=== PATIENT | female | born 1930 | race Caucasian/White ===

== ENCOUNTER 2016-11-09 20:58 | Inpatient (IN) | payer OTHER, BC ==
[~2016-11-09] VITALS: Ht 165.1 cm; Wt 56.1 kg
[~2016-11-09 20:58] MED LIST: ADVAIR 250/501 DISK IH; ADVAIR HFA120 INHALA IH; ASPIR-LOW81 MG PO; Advair HFA 115/21 IH; Aspirin E.C. PO; BENAZEPRIL HCL10 MG PO; CEFTIN250 MG PO; CEFTIN500 MG PO; Colace PO; Combivent IH; DIGOXIN125 MCG PO; DIGOXIN250 MCG PO; DOXYCYCLINE HY100 MG PO; DUONEB 2.5-0.5 M3 ML AEROSOL; DUONEB 2.5-0.5 M3 ML IH; Dulcolax PEG; Heparin Sodium SC; LASIX40 MG PO; LEVAQUIN500 MG PO; LEVOFLOXACIN500 MG PO; LIPITOR40 MG PO; LO-DOSE ASPIRIN81 M2 PO; LOPRESSOR25 MG PO; Lasix PEG; Lipitor PO; Lopressor PO; MEGACE40 MG PO; METOPROLOL TART25 MG PO; MUCINEX DM ER1 EACH PO; MUCUS RELIEF PEG; MUCUS RELIEF400 MG PO; PANTOPRAZOLE SO40 MG PO; PREDNISONE10 MG PO; PREDNISONE5 MG PO; PROTONIX40 MG PO; PROVENTIL,2.5 MG/0.5 IH; Protonix PO; SODIUM CHLORIDE1 G1 PO; SPIRIVA1 INHALATI IH; SYNTHROID100 MCG PO; TYLENOL EXTRA500 MG PO; TYLENOL REGULA325 MG PO; predniSONE PO
[2016-11-09 21:38] LABS: HEMATOCRIT 40.7 % (36.0-46.0); MCH 31.2 PG (29.0-34.0); MCHC 32.7 G/DL (30.0-36.0); MCV 95.5 FL (83-99); MEAN PLAT.VOLUME 8.7 uM^3 (9.5-12.4); PLATELET COUNT 431 K/uL (156-360); RBC DIS.WIDTH-CV 14.9 % (11.8-14.6); RBC DIS.WIDTH-SD 49.8 % (39-53); RED BLOOD COUNT 4.26 M/uL (3.80-5.20); WHITE BLOOD COUNT 15.9 K/uL (4.1-10.2)
[2016-11-09 21:48] LABS: CHLORIDE 90 mEq/L (99-109)
[2016-11-09 21:49] LABS: SODIUM 133 mEq/L (136-147)
[2016-11-09 21:50] LABS: GLUCOSE 114 mg/dL (70-99)
[2016-11-09 21:52] LABS: ANION GAP 14 MEQ/L (2-14); POTASSIUM 3.5 mEq/L (3.7-5.4)
[2016-11-09 21:54] LABS: GFR ESTIMATE (CALCULATED) > 59 mL/min/
[2016-11-09 21:55] LABS: UREA NITROGEN (BUN) 8 mg/dL (9-23)
[2016-11-09 22:01] LABS: TROP-I INTERPRETATION NEGATIVE; TROPONIN-I 0.07 ng/mL (0.0-0.30)
[2016-11-10 03:00] LABS: ADD MIUA? YES; BILIRUBIN NEGATIVE; BLOOD NEGATIVE; COLOR YELLOW ((YELLOW)); GLUCOSE (STRIP) NEGATIVE; KETONES NEGATIVE; LEUKOCYTES MODERATE; NITRITE POSITIVE; PH, URINE 6.5 (5-8); PROTEIN (STRIP) NEGATIVE; SPECIFIC GRAVITY 1.009 (1.000-1.030)
[2016-11-10 03:19] LABS: BACTERIA RARE; CASTS PRESENT /LPF; CRYSTALS NONE SEEN; EPITHELIAL CELLS RARE; HYALINE CASTS 0-5 /LPF; MUCUS NONE SEEN; RED BLOOD CELLS NONE SEEN /HPF (0-5); UCUL ADDED? NO; WHITE BLOOD CELLS 30-40 /HPF (0-5)
[2016-11-10 06:00] VITALS: BP 156/69
[2016-11-10 06:07] VITALS: BP 156/69
[2016-11-10 07:14] VITALS: BP 136/63
[2016-11-10 12:13] VITALS: BP 139/63
[2016-11-10 16:43] VITALS: BP 135/59
[2016-11-10 23:45] VITALS: BP 131/62
[2016-11-11 04:23] VITALS: BP 125/58
[2016-11-11 06:25] LABS: EOSINOPHIL (%) 0.5 % (0-5); EOSINOPHIL COUNT 0.1 K/uL (0-0.3); HEMATOCRIT 37.2 % (36.0-46.0); IMMATURE GRANULOCYTE (%) 0.3 % (0.0-0.7); MCH 31.2 PG (29.0-34.0); MCHC 32.5 G/DL (30.0-36.0); MCV 95.9 FL (83-99); MONOCYTE (%) 8.6 % (3-12); MONOCYTE COUNT 1.3 K/uL (0-0.8); NEUTROPHIL (%) 77.5 % (45-76); NEUTROPHIL COUNT 11.8 K/uL (1.8-6.4); PLATELET COUNT 334 K/uL (156-360); RBC DIS.WIDTH-CV 15.3 % (11.8-14.6); RBC DIS.WIDTH-SD 53.7 % (39-53); RED BLOOD COUNT 3.88 M/uL (3.80-5.20); WHITE BLOOD COUNT 15.2 K/uL (4.1-10.2)
[2016-11-11 07:01] LABS: DIGOXIN 1.3 ng/mL (0.8-2.0)
[2016-11-11 07:46] LABS: ALKALINE PHOSPHATASE 91 IU/L (3-129); ANION GAP 14 MEQ/L (2-14); CHLORIDE 93 MEQ/L (99-109); GFR ESTIMATE (CALCULATED) > 59 mL/min/; GLUCOSE 89 mg/dL (70-99); POTASSIUM 3.8 MEQ/L (3.7-5.4); SAMPLE HEMOLYSIS CHECK 1; SAMPLE ICTERIC CHECK 0; SAMPLE LIPEMIA CHECK 0; SODIUM 135 MEQ/L (136-147); UREA NITROGEN (BUN) 11 mg/dL (9-23)
[2016-11-11 07:56] LABS: TOTAL BILIRUBIN 0.8 MG/DL (0.0-1.0)
[2016-11-11 08:07] VITALS: BP 150/65
[2016-11-11 12:19] VITALS: BP 128/60
[2016-11-11 16:13] VITALS: BP 92/51
[2016-11-11 19:44] VITALS: BP 119/53
[2016-11-11 23:32] VITALS: BP 135/63
[2016-11-12 00:32] VITALS: BP 140/71
[2016-11-12 04:05] VITALS: BP 146/67
[2016-11-12 07:59] VITALS: BP 123/59
[2016-11-12 16:00] VITALS: BP 96/52
[2016-11-13 00:10] VITALS: BP 161/74
[2016-11-13] MEDS ORDERED: DIGOXIN250 MCG PO (11:28)
[2016-11-13] MEDS ORDERED: ASPIR-LOW81 MG PO (11:30)
[2016-11-13] MEDS ORDERED: PROTONIX40 MG PO (11:31)
[2016-11-13] MEDS ORDERED: LIPITOR40 MG PO (11:33)
[2016-11-13] MEDS ORDERED: SYNTHROID100 MCG PO (11:36)
[2016-11-13] MEDS ORDERED: PREDNISONE5 MG PO (11:36)
[2016-11-13] MEDS ORDERED: DUONEB 2.5-0.5 M3 ML AEROSOL (11:38)
[2016-11-13] MEDS ORDERED: SODIUM CHLORIDE1 G1 PO (11:43)
[2016-11-13] MEDS ORDERED: LOTENSIN10 MG PO (11:44)
[2016-11-13 15:41] VITALS: BP 158/71
[2016-11-13 20:51] LABS: ADD MIUA? YES; BILIRUBIN NEGATIVE; BLOOD NEGATIVE; COLOR DK YELLOW ((YELLOW)); GLUCOSE (STRIP) NEGATIVE; KETONES NEGATIVE; LEUKOCYTES SMALL; NITRITE NEGATIVE; PROTEIN (STRIP) TRACE
[2016-11-13 21:36] LABS: RED BLOOD CELLS 0-5 /HPF (0-5); WHITE BLOOD CELLS 0-5 /HPF (0-5)
[2016-11-13 21:37] LABS: BACTERIA RARE; CASTS NONE SEEN /LPF; CRYSTALS NONE SEEN; EPITHELIAL CELLS 3+; MUCUS 1+; UCUL ADDED? NO
[2016-11-14 00:01] VITALS: BP 165/70
[2016-11-14 08:12] LABS: EOSINOPHIL (%) 1.7 % (0-5); EOSINOPHIL COUNT 0.2 K/uL (0-0.3); HEMATOCRIT 29.6 % (36.0-46.0); IMMATURE GRANULOCYTE (%) 0.3 % (0.0-0.7); LYMPHOCYTE COUNT 1.9 K/uL (1.0-2.8); MCH 31.7 PG (29.0-34.0); MCHC 33.1 G/DL (30.0-36.0); MCV 95.8 FL (83-99); MEAN PLAT.VOLUME 9.2 uM^3 (9.5-12.4); MONOCYTE (%) 10.5 % (3-12); NEUTROPHIL (%) 67.3 % (45-76); NEUTROPHIL COUNT 6.3 K/uL (1.8-6.4); PLATELET COUNT 373 K/uL (156-360); RBC DIS.WIDTH-CV 15.4 % (11.8-14.6); RBC DIS.WIDTH-SD 53.8 % (39-53)
[2016-11-14 08:14] LABS: RED BLOOD COUNT 3.09 M/uL (3.80-5.20); WHITE BLOOD COUNT 9.3 K/uL (4.1-10.2)
[2016-11-14 08:18] LABS: ALKALINE PHOSPHATASE 73 IU/L (3-129); ANION GAP 11 MEQ/L (2-14); CHLORIDE 99 MEQ/L (99-109); GFR ESTIMATE (CALCULATED) > 59 mL/min/; GLUCOSE 79 mg/dL (70-99); POTASSIUM 3.5 MEQ/L (3.7-5.4); SAMPLE HEMOLYSIS CHECK 0; SAMPLE ICTERIC CHECK 0; SAMPLE LIPEMIA CHECK 0; SODIUM 137 MEQ/L (136-147); UREA NITROGEN (BUN) 11 mg/dL (9-23)
[2016-11-14 08:24] LABS: TOTAL BILIRUBIN 0.5 MG/DL (0.0-1.0)
[2016-11-14] MEDS ORDERED: AMPICILLIN TRI500 MG PO (09:52)
== END 2016-11-14 11:48 | disposition home or self-care (01) | DRG 871 ==
LOC: EME 20:58 → EDOF 11-10 04:43 → 5EAST 11-10 04:43 → 3EAST 11-10 04:43 → 5EAST 11-12 00:15
PROVIDERS: Emergency Medicine; Family Medicine
DX: A41.9 Sepsis, unspecified organism (principal); G93.40 Encephalopathy, unspecified; N39.0 Urinary tract infection, site not specified; E87.1 Hypo-osmolality and hyponatremia; I48.2 Chronic atrial fibrillation; B95.2 Enterococcus as the cause of diseases classified elsewhere; J44.9 Chronic obstructive pulmonary disease, unspecified; E78.5 Hyperlipidemia, unspecified; I10 Essential (primary) hypertension; I25.10 Atherosclerotic heart disease of native coronary artery without angina pectoris; E03.9 Hypothyroidism, unspecified; Z99.81 Dependence on supplemental oxygen
CPT/HCPCS: 71010; 71020; 80048; 80053; 80162; 81003; 84443; 84484; 85025; 85027; 87077; 87086; 87186; 93005; 94760; 94799; 99202; 99281; 99285; J0295; J0696; J7030; J7050; J7512

== ENCOUNTER 2017-01-06 23:59 | Inpatient (IN) | payer OTHER, BC ==
[~2017-01-06] VITALS: Ht 165.1 cm; Wt 59.0 kg
[~2017-01-06 23:59] MED LIST changes: +AMPICILLIN TRI500 MG PO; +LOTENSIN10 MG PO
[2017-01-07 01:09] LABS: EOSINOPHIL COUNT 0.1 K/uL (0-0.3); HEMATOCRIT 39.3 % (36.0-46.0); IMMATURE GRANULOCYTE (%) 0.3 % (0.0-0.7); IMMATURE GRANULOCYTE COUNT 0.3 K/uL; MCH 30.8 PG (29.0-34.0); MCHC 32.3 G/DL (30.0-36.0); MCV 95.2 FL (83-99); MEAN PLAT.VOLUME 9.1 uM^3 (9.5-12.4); MONOCYTE (%) 9.8 % (3-12); MONOCYTE COUNT 1.1 K/uL (0-0.8); NEUTROPHIL (%) 71.4 % (45-76); NEUTROPHIL COUNT 8.2 K/uL (1.8-6.4); PLATELET COUNT 372 K/uL (156-360); RBC DIS.WIDTH-CV 15.7 % (11.8-14.6); RBC DIS.WIDTH-SD 52.4 % (39-53); RED BLOOD COUNT 4.13 M/uL (3.80-5.20); WHITE BLOOD COUNT 11.5 K/uL (4.1-10.2)
[2017-01-07 01:42] LABS: PROTHROMBIN TIME 10.4 (9.2-11.2); PTT 26.6 (25-32)
[2017-01-07 01:48] LABS: TROP-I INTERPRETATION NEGATIVE; TROPONIN-I 0.03 ng/mL (0.0-0.30)
[2017-01-07 02:00] LABS: CHLORIDE 93 mEq/L (99-109); POTASSIUM 4.8 mEq/L (3.7-5.4); SODIUM 131 mEq/L (136-147)
[2017-01-07 02:01] LABS: GLUCOSE 99 mg/dL (70-99)
[2017-01-07 02:03] LABS: ANION GAP 11 MEQ/L (2-14)
[2017-01-07 02:05] LABS: GFR ESTIMATE (CALCULATED) > 59 mL/min/
[2017-01-07 02:06] LABS: UREA NITROGEN (BUN) 9 mg/dL (9-23)
[2017-01-07 05:08] LABS: HDL CHOLESTEROL 55 MG/DL (Desirable>=50); LDL CHOLESTEROL 68 mg/dL (Desirable<100); NON-HDL CHOLESTEROL 95 mg/dL (Desirable<160); TOTAL CHOLESTEROL 150 mg/dL (Desirable<200); TRIGLYCERIDES 136 MG/DL (Normal: <150)
[2017-01-07 05:20] LABS: ADD MIUA? YES; BILIRUBIN NEGATIVE; BLOOD SMALL; COLOR YELLOW ((YELLOW)); GLUCOSE (STRIP) NEGATIVE; KETONES NEGATIVE; LEUKOCYTES MODERATE; NITRITE NEGATIVE; PROTEIN (STRIP) NEGATIVE; SPECIFIC GRAVITY 1.006 (1.000-1.030); UROBILINOGEN 0.2 MG/DL (0.2-1.0)
[2017-01-07 05:42] LABS: BACTERIA 2+ /HPF; EPITHELIAL CELLS 1+ /HPF; MUCUS NONE SEEN /LPF; RED BLOOD CELLS 0-5 /HPF (0-5); UCUL ADDED? YES; WHITE BLOOD CELLS 20-30 /HPF (0-5)
[2017-01-07] MEDS ORDERED: METOPROLOL TART25 MG PO (07:18)
[2017-01-07] MEDS ORDERED: FUROSEMIDE40 MG PO (07:18)
[2017-01-07 08:20] VITALS: BP 154/67
[2017-01-07 12:28] VITALS: BP 150/68
[2017-01-07 16:15] VITALS: BP 146/65
[2017-01-07 19:54] VITALS: BP 144/69
[2017-01-08 00:21] VITALS: BP 141/63
[2017-01-08 08:05] VITALS: BP 149/65
[2017-01-08 12:20] VITALS: BP 147/63
[2017-01-08 14:44] VITALS: BP 129/63
[2017-01-08 19:34] VITALS: BP 117/67
[2017-01-08 23:21] VITALS: BP 136/66
[2017-01-09 04:04] VITALS: BP 155/67
[2017-01-09 07:57] VITALS: BP 148/62
[2017-01-09 12:47] VITALS: BP 146/62
[2017-01-09 16:26] VITALS: BP 136/69
[2017-01-09 19:58] VITALS: BP 123/59
[2017-01-10] VITALS: BP 152/68
[2017-01-10 04:00] VITALS: BP 131/66
[2017-01-10 08:08] VITALS: BP 156/61
[2017-01-10 12:12] VITALS: BP 142/64
[2017-01-10 16:09] VITALS: BP 148/69
[2017-01-11] VITALS: BP 174/72
[2017-01-11 01:48] VITALS: BP 138/62
[2017-01-11 03:43] VITALS: BP 147/66
[2017-01-11 07:00] VITALS: BP 146/71
[2017-01-11 15:54] VITALS: BP 117/58
[2017-01-12 00:13] VITALS: BP 147/62
[2017-01-12 08:30] VITALS: BP 152/62
[2017-01-12 11:47] VITALS: BP 129/60
[2017-01-12 14:54] VITALS: BP 103/57
[2017-01-12 21:33] VITALS: BP 130/62
[2017-01-12 23:59] VITALS: BP 167/67
[2017-01-13 08:04] VITALS: BP 138/63
[2017-01-13 11:35] VITALS: BP 119/75
[2017-01-13 15:32] VITALS: BP 152/69
[2017-01-13 23:48] VITALS: BP 148/65
[2017-01-14 07:48] VITALS: BP 132/60
[2017-01-14] MEDS ORDERED: MEGACE20 MG PO (15:37)
[2017-01-14 15:38] VITALS: BP 131/59
[2017-01-14] MEDS ORDERED: ADVAIR HFA120 INHALA IH (15:41)
[2017-01-14] MEDS ORDERED: CEFTIN250 MG PO (15:43)
== END 2017-01-14 17:30 | DRG 69 ==
LOC: EME 23:59 → EDOF 01-07 02:33 → 5SOUTH 01-07 03:24 → EDOF 01-07 03:24 → 5SOUTH 01-07 07:52
PROVIDERS: Personal Emergency Response Attendant
DX: G45.9 Transient cerebral ischemic attack, unspecified (principal); L03.115 Cellulitis of right lower limb; J44.1 Chronic obstructive pulmonary disease with (acute) exacerbation; E87.1 Hypo-osmolality and hyponatremia; N39.0 Urinary tract infection, site not specified; F05 Delirium due to known physiological condition; R47.01 Aphasia; R09.02 Hypoxemia; E03.9 Hypothyroidism, unspecified; B96.1 Klebsiella pneumoniae [K. pneumoniae] as the cause of diseases classified elsewhere; I10 Essential (primary) hypertension; K21.9 Gastro-esophageal reflux disease without esophagitis; I73.00 Raynaud's syndrome without gangrene; L40.9 Psoriasis, unspecified; I83.90 Asymptomatic varicose veins of unspecified lower extremity; Z79.52 Long term (current) use of systemic steroids; Z83.3 Family history of diabetes mellitus
CPT/HCPCS: 70450; 71020; 80048; 80061; 81003; 83036; 84484; 85025; 85610; 85730; 87077; 87086; 87186; 93005; 93880; 94640; 94640 76; 94667; 94668; 94799; 97530 GO; 97530 GP; 99281; 99285; J0690; J0696; J7050; J7512

== ENCOUNTER 2017-01-14 21:38 | Inpatient (IN) | payer OTHER, BC ==
[~2017-01-14] VITALS: Ht 165.1 cm; Wt 56.9 kg
[~2017-01-14 21:38] MED LIST changes: +FUROSEMIDE40 MG PO; +MEGACE20 MG PO
[2017-01-14 22:33] LABS: MCHC 33.4 G/DL (30.0-36.0); MCV 92.8 FL (83-99); MEAN PLAT.VOLUME 9.3 uM^3 (9.5-12.4); PLATELET COUNT 452 K/uL (156-360); RBC DIS.WIDTH-CV 15.7 % (11.8-14.6); RBC DIS.WIDTH-SD 53.1 % (39-53); RED BLOOD COUNT 3.77 M/uL (3.80-5.20)
[2017-01-14 22:42] LABS: CHLORIDE 99 mEq/L (99-109); POTASSIUM 4.1 mEq/L (3.7-5.4); SODIUM 130 mEq/L (136-147)
[2017-01-14 22:44] LABS: GLUCOSE 97 mg/dL (70-99)
[2017-01-14 22:45] LABS: ANION GAP 11 MEQ/L (2-14); INTER. NORMALIZED RATIO 1.1; PROTHROMBIN TIME 10.8 (9.2-11.2); PTT 28.2 (25-32)
[2017-01-14 22:47] LABS: GFR ESTIMATE (CALCULATED) > 59 mL/min/
[2017-01-14 22:48] LABS: UREA NITROGEN (BUN) 12 mg/dL (9-23)
[2017-01-15] VITALS (7 sets, daily range): BP systolic 103–142; BP diastolic 46–66
[2017-01-15 06:43] LABS: ADD MIUA? YES; BILIRUBIN NEGATIVE; BLOOD NEGATIVE; COLOR YELLOW ((YELLOW)); GLUCOSE (STRIP) NEGATIVE; KETONES NEGATIVE; LEUKOCYTES MODERATE; NITRITE NEGATIVE; PROTEIN (STRIP) 30; SPECIFIC GRAVITY 1.016 (1.000-1.030); UROBILINOGEN 0.2 MG/DL (0.2-1.0)
[2017-01-15 06:55] LABS: BACTERIA RARE /HPF; EPITHELIAL CELLS 1+ /HPF; HYALINE CASTS 15-20 /LPF; MUCUS TRACE /LPF; UCUL ADDED? NO; WHITE BLOOD CELLS 20-30 /HPF (0-5)
[2017-01-16] VITALS (13 sets, daily range): BP systolic 99–146; BP diastolic 46–76
[2017-01-16 06:33] LABS: HEMATOCRIT 26.4 % (36.0-46.0)
[2017-01-17 00:06] VITALS: BP 114/55
[2017-01-17 05:06] VITALS: BP 122/75
[2017-01-17 06:05] LABS: HEMATOCRIT 31.4 % (36.0-46.0); MCV 91.5 FL (83-99)
[2017-01-17 12:26] VITALS: BP 113/62
[2017-01-17 15:53] VITALS: BP 115/63
[2017-01-17 20:18] VITALS: BP 152/68
[2017-01-18 00:21] VITALS: BP 128/66
[2017-01-18 07:26] VITALS: BP 148/67
[2017-01-18 12:35] LABS: MCH 29.4 PG (29.0-34.0); MCHC 31.9 G/DL (30.0-36.0); MEAN PLAT.VOLUME 9.5 uM^3 (9.5-12.4); PLATELET COUNT 435 K/uL (156-360); RBC DIS.WIDTH-CV 16.3 % (11.8-14.6); RBC DIS.WIDTH-SD 55.4 % (39-53); RED BLOOD COUNT 4.02 M/uL (3.80-5.20)
[2017-01-18 13:07] LABS: ANION GAP 12 MEQ/L (2-14); CHLORIDE 102 MEQ/L (99-109); GFR ESTIMATE (CALCULATED) > 59 mL/min/; GLUCOSE 86 mg/dL (70-99); POTASSIUM 4.1 MEQ/L (3.7-5.4); SAMPLE HEMOLYSIS CHECK 0; SAMPLE ICTERIC CHECK 0; SAMPLE LIPEMIA CHECK 0; UREA NITROGEN (BUN) 14 mg/dL (9-23)
[2017-01-18 13:11] LABS: SODIUM 138 MEQ/L (136-147)
[2017-01-18] MEDS ORDERED: CALCIUM 600 +1 EAC1 PO (13:52)
[2017-01-18] MEDS ORDERED: OSTEO-PORETICA1 EACH PO (13:58)
[2017-01-18 15:07] VITALS: BP 112/62
== END 2017-01-18 16:01 | DRG 481 ==
LOC: EME → EDBD 21:38 → 3EAST 01-15 02:38 → EDOF 01-15 02:38 → 3EAST 01-15 05:12
PROVIDERS: Emergency Medicine; Family Medicine; Orthopaedic Surgery
PROC: 0QS604Z Reposition Right Upper Femur with Internal Fixation Device, Open Approach (ICD-10-PCS; principal; 2017-01-16)
DX: S72.141A Displaced intertrochanteric fracture of right femur, initial encounter for closed fracture (principal); E87.1 Hypo-osmolality and hyponatremia; N39.0 Urinary tract infection, site not specified; J44.9 Chronic obstructive pulmonary disease, unspecified; I25.810 Atherosclerosis of coronary artery bypass graft(s) without angina pectoris; D62 Acute posthemorrhagic anemia; W19.XXXA Unspecified fall, initial encounter; R09.02 Hypoxemia; F31.9 Bipolar disorder, unspecified; E78.5 Hyperlipidemia, unspecified; I10 Essential (primary) hypertension; E03.9 Hypothyroidism, unspecified; Z86.73 Personal history of transient ischemic attack (TIA), and cerebral infarction without residual deficits; Z87.891 Personal history of nicotine dependence; Z88.6 Allergy status to analgesic agent; Z88.8 Allergy status to other drugs, medicaments and biological substances; Z79.82 Long term (current) use of aspirin; Z95.1 Presence of aortocoronary bypass graft; Y92.121 Bathroom in nursing home as the place of occurrence of the external cause; Y99.9 Unspecified external cause status
CPT/HCPCS: 71010; 73501; 73502; 73552; 76000; 80048; 81003; 85014; 85018; 85027; 85610; 85730; 86850; 86900; 86901; 86920; 93005; 93306; 94640; 94640 76; 94799; 99202; C1713; J0690; J0696; J1170; J1650; J1940; J2370; J2405; J3010; J7030; J7050; J7120; J7512; P9016; S0020

== ENCOUNTER 2017-04-27 16:44 | Inpatient (IN) | payer OTHER, BC ==
[~2017-04-27] VITALS: Ht 165.1 cm; Wt 52.8 kg
[~2017-04-27 16:44] MED LIST changes: +CALCIUM 600 +1 EAC1 PO; +OSTEO-PORETICA1 EACH PO
[2017-04-27 17:44] LABS: HEMATOCRIT 41.8 % (36.0-46.0); MCH 30.8 PG (29.0-34.0); MCHC 32.3 G/DL (30.0-36.0); MCV 95.4 FL (83-99); MEAN PLAT.VOLUME 8.8 uM^3 (9.5-12.4); PLATELET COUNT 356 K/uL (156-360); RBC DIS.WIDTH-CV 15.6 % (11.8-14.6); RBC DIS.WIDTH-SD 55.1 % (39-53); RED BLOOD COUNT 4.38 M/uL (3.80-5.20); WHITE BLOOD COUNT 12.9 K/uL (4.1-10.2)
[2017-04-27 17:54] LABS: CHLORIDE 91 mEq/L (99-109); SODIUM 132 mEq/L (136-147)
[2017-04-27 17:56] LABS: GLUCOSE 109 mg/dL (70-99)
[2017-04-27 17:58] LABS: ANION GAP 10 MEQ/L (2-14)
[2017-04-27 18:00] LABS: GFR ESTIMATE (CALCULATED) > 59 mL/min/
[2017-04-27 18:01] LABS: UREA NITROGEN (BUN) 8 mg/dL (9-23)
[2017-04-27 21:03] LABS: TROP-I INTERPRETATION NEGATIVE; TROPONIN-I < 0.01 ng/mL (0.0-0.30)
[2017-04-27 21:06] LABS: ADD MIUA? YES; BILIRUBIN NEGATIVE; BLOOD NEGATIVE; COLOR YELLOW ((YELLOW)); GLUCOSE (STRIP) NEGATIVE; KETONES NEGATIVE; LEUKOCYTES SMALL; NITRITE NEGATIVE; PROTEIN (STRIP) NEGATIVE; SPECIFIC GRAVITY 1.008 (1.000-1.030); UROBILINOGEN 0.2 MG/DL (0.2-1.0)
[2017-04-27 21:14] LABS: BACTERIA 3+ /HPF; EPITHELIAL CELLS RARE /HPF; GRANULAR CASTS 0-5 /LPF; MUCUS TRACE /LPF; RED BLOOD CELLS 0-5 /HPF (0-5); UCUL ADDED? YES; WHITE BLOOD CELLS 20-30 /HPF (0-5); WHITE BLOOD CELLS CLUMP RARE /HPF (0-5)
[2017-04-27] MEDS ORDERED: CEFTIN500 MG PO (23:10)
[2017-04-27] MEDS ORDERED: MUCINEX DM ER1 EACH PO (23:13)
[2017-04-28] VITALS (8 sets, daily range): BP systolic 123–159; BP diastolic 56–67
[2017-04-28 06:24] LABS: HEMATOCRIT 34.7 % (36.0-46.0); MCH 30.8 PG (29.0-34.0); MCHC 32.6 G/DL (30.0-36.0); MCV 94.6 FL (83-99); RBC DIS.WIDTH-CV 15.9 % (11.8-14.6); RBC DIS.WIDTH-SD 55.4 % (39-53); RED BLOOD COUNT 3.67 M/uL (3.80-5.20); WHITE BLOOD COUNT 11.7 K/uL (4.1-10.2)
[2017-04-28 06:55] LABS: ALKALINE PHOSPHATASE 66 IU/L (3-129); ANION GAP 6 MEQ/L (2-14); CHLORIDE 95 MEQ/L (99-109); GFR ESTIMATE (CALCULATED) > 59 mL/min/; GLUCOSE 83 mg/dL (70-99); POTASSIUM 3.8 MEQ/L (3.7-5.4); SAMPLE HEMOLYSIS CHECK 0; SAMPLE ICTERIC CHECK 0; SAMPLE LIPEMIA CHECK 0; SODIUM 131 MEQ/L (136-147); TOTAL BILIRUBIN 0.5 MG/DL (0.0-1.0); UREA NITROGEN (BUN) 9 mg/dL (9-23)
[2017-04-28 07:18] LABS: PLAT.SUFFICIENCY ADEQUATE; PLATELET CLUMPS PRESENT - PLATELET COUNT APPEARS ADQ.; PLATELET COUNT UNABLE TO REPORT K/uL (156-360)
[2017-04-29] VITALS (7 sets, daily range): BP systolic 90–149; BP diastolic 47–67
[2017-04-30 04:47] VITALS: BP 138/65
[2017-04-30 05:44] LABS: EOSINOPHIL (%) 0.3 % (0-5); HEMATOCRIT 33.9 % (36.0-46.0); IMMATURE GRANULOCYTE (%) 0.4 % (0.0-0.7); INSTRUMENT ABS NEUTROPHIL CT 6.9 K/uL; LYMPHOCYTE COUNT 1.5 K/uL (1.0-2.8); MCV 93.9 FL (83-99); MEAN PLAT.VOLUME 9.1 uM^3 (9.5-12.4); MONOCYTE (%) 11.8 % (3-12); MONOCYTE COUNT 1.1 K/uL (0-0.8); NEUTROPHIL (%) 71.5 % (45-76); NEUTROPHIL COUNT 6.9 K/uL (1.8-6.4); PLATELET COUNT 290 K/uL (156-360); RBC DIS.WIDTH-CV 15.4 % (11.8-14.6); RBC DIS.WIDTH-SD 53.5 % (39-53); RED BLOOD COUNT 3.61 M/uL (3.80-5.20); WHITE BLOOD COUNT 9.6 K/uL (4.1-10.2)
[2017-04-30 06:12] LABS: ALKALINE PHOSPHATASE 57 IU/L (3-129); ANION GAP 6 MEQ/L (2-14); CHLORIDE 93 MEQ/L (99-109); GFR ESTIMATE (CALCULATED) > 59 mL/min/; POTASSIUM 3.5 MEQ/L (3.7-5.4); SAMPLE HEMOLYSIS CHECK 0; SAMPLE ICTERIC CHECK 0; SAMPLE LIPEMIA CHECK 0; SODIUM 127 MEQ/L (136-147); UREA NITROGEN (BUN) 10 mg/dL (9-23)
[2017-04-30 06:13] LABS: GLUCOSE 111 mg/dL (70-99); TOTAL BILIRUBIN 0.7 MG/DL (0.0-1.0)
[2017-04-30 07:58] VITALS: BP 135/63
[2017-04-30 11:12] VITALS: BP 129/60
[2017-04-30 16:15] VITALS: BP 131/62
[2017-04-30 20:11] VITALS: BP 125/66
[2017-04-30 23:30] VITALS: BP 144/67
[2017-05-01 05:15] VITALS: BP 145/68
[2017-05-01 08:30] VITALS: BP 135/61
[2017-05-01] MEDS ORDERED: MEGACE20 MG PO (12:24)
[2017-05-01] MEDS ORDERED: ADVAIR HFA120 INHALA IH (12:27)
[2017-05-01] MEDS ORDERED: NITROFURANTOIN50 MG PO (12:31)
== END 2017-05-01 14:41 | disposition home health service (06) | DRG 690 ==
LOC: EME 16:44 → EDOF 22:34 → 4EAST 22:34
PROVIDERS: Family Medicine
DX: N39.0 Urinary tract infection, site not specified (principal); Z68.1 Body mass index [BMI] 19.9 or less, adult; E87.1 Hypo-osmolality and hyponatremia; F05 Delirium due to known physiological condition; E03.9 Hypothyroidism, unspecified; I48.2 Chronic atrial fibrillation; I73.00 Raynaud's syndrome without gangrene; K21.9 Gastro-esophageal reflux disease without esophagitis; R09.02 Hypoxemia; J44.9 Chronic obstructive pulmonary disease, unspecified; L40.9 Psoriasis, unspecified; R54 Age-related physical debility; B96.20 Unspecified Escherichia coli [E. coli] as the cause of diseases classified elsewhere; Z87.891 Personal history of nicotine dependence; Z99.81 Dependence on supplemental oxygen; Z88.1 Allergy status to other antibiotic agents; Z83.3 Family history of diabetes mellitus
CPT/HCPCS: 71010; 71020; 80048; 80053; 80170; 81003; 83605; 84484; 85025; 85027; 87077; 87086; 87186; 92610 GN; 93005; 94640; 94640 76; 94799; 99281; 99285; J0696; J1580; J1940; J7030; J7050; J7512

== ENCOUNTER 2017-05-04 21:51 | Inpatient (IN) | payer OTHER, BC ==
[~2017-05-04] VITALS: Ht 167.6 cm; Wt 43.9 kg
[~2017-05-04 21:51] MED LIST changes: +NITROFURANTOIN50 MG PO
[2017-05-04 23:07] LABS: ADD MIUA? NO; BILIRUBIN NEGATIVE; BLOOD NEGATIVE; COLOR YELLOW ((YELLOW)); GLUCOSE (STRIP) NEGATIVE; KETONES NEGATIVE; LEUKOCYTES NEGATIVE; NITRITE NEGATIVE; PROTEIN (STRIP) NEGATIVE; SPECIFIC GRAVITY 1.006 (1.000-1.030); UCUL ADDED? NO; UROBILINOGEN 0.2 MG/DL (0.2-1.0)
[2017-05-05 00:10] LABS: CHLORIDE 94 mEq/L (99-109); INTER. NORMALIZED RATIO 1.1; POTASSIUM 3.6 mEq/L (3.7-5.4); PROTHROMBIN TIME 10.9 (9.2-11.2); PTT 24.3 (25-32); SODIUM 129 mEq/L (136-147)
[2017-05-05 00:12] LABS: GLUCOSE 104 mg/dL (70-99)
[2017-05-05 00:14] LABS: ANION GAP 8 MEQ/L (2-14); TOTAL BILIRUBIN 0.5 mg/dL (0.0-1.0)
[2017-05-05 00:16] LABS: ALKALINE PHOSPHATASE 62 IU/L (3-129); GFR ESTIMATE (CALCULATED) > 59 mL/min/
[2017-05-05 00:17] LABS: UREA NITROGEN (BUN) 10 mg/dL (9-23)
[2017-05-05 00:19] LABS: LIPASE 12 U/L (1.0-51.0)
[2017-05-05 00:21] LABS: BASOPHIL COUNT 0.1 K/uL (0-0.1); EOSINOPHIL (%) 0.2 % (0-5); HEMATOCRIT 34.1 % (36.0-46.0); IMMATURE GRANULOCYTE (%) 0.6 % (0.0-0.7); IMMATURE GRANULOCYTE COUNT 0.1 K/uL; INSTRUMENT ABS NEUTROPHIL CT 16.3 K/uL; LYMPHOCYTE COUNT 2.1 K/uL (1.0-2.8); MCH 30.1 PG (29.0-34.0); MCHC 32.6 G/DL (30.0-36.0); MCV 92.4 FL (83-99); MEAN PLAT.VOLUME 8.9 uM^3 (9.5-12.4); MONOCYTE (%) 6.6 % (3-12); MONOCYTE COUNT 1.3 K/uL (0-0.8); NEUTROPHIL (%) 81.6 % (45-76); NEUTROPHIL COUNT 16.3 K/uL (1.8-6.4); PLATELET COUNT 350 K/uL (156-360); RBC DIS.WIDTH-CV 15.4 % (11.8-14.6); RBC DIS.WIDTH-SD 52.3 % (39-53); RED BLOOD COUNT 3.69 M/uL (3.80-5.20); WHITE BLOOD COUNT 19.9 K/uL (4.1-10.2)
[2017-05-05 00:22] LABS: TROP-I INTERPRETATION NEGATIVE; TROPONIN-I 0.02 ng/mL (0.0-0.30)
[2017-05-05 01:08] LABS: DIGOXIN 1.4 ng/mL (0.8-2.0)
[2017-05-05 13:15] VITALS: BP 155/68
[2017-05-05 16:14] VITALS: BP 119/54
[2017-05-05 19:28] VITALS: BP 126/56
[2017-05-05 23:28] VITALS: BP 149/66
[2017-05-06 03:58] VITALS: BP 142/61
[2017-05-06 06:50] VITALS: BP 121/57
[2017-05-06 07:00] LABS: EOSINOPHIL (%) 0.4 % (0-5); EOSINOPHIL COUNT 0.1 K/uL (0-0.3); HEMATOCRIT 32.2 % (36.0-46.0); IMMATURE GRANULOCYTE (%) 0.9 % (0.0-0.7); IMMATURE GRANULOCYTE COUNT 0.1 K/uL; INSTRUMENT ABS NEUTROPHIL CT 9.9 K/uL; LYMPHOCYTE COUNT 1.7 K/uL (1.0-2.8); MCH 30.5 PG (29.0-34.0); MCHC 32.3 G/DL (30.0-36.0); MCV 94.4 FL (83-99); MEAN PLAT.VOLUME 9.1 uM^3 (9.5-12.4); MONOCYTE (%) 6.3 % (3-12); MONOCYTE COUNT 0.8 K/uL (0-0.8); NEUTROPHIL (%) 78.8 % (45-76); NEUTROPHIL COUNT 9.9 K/uL (1.8-6.4); PLATELET COUNT 324 K/uL (156-360); RBC DIS.WIDTH-CV 15.4 % (11.8-14.6); RBC DIS.WIDTH-SD 53.7 % (39-53); RED BLOOD COUNT 3.41 M/uL (3.80-5.20); WHITE BLOOD COUNT 12.6 K/uL (4.1-10.2)
[2017-05-06 07:08] LABS: ALKALINE PHOSPHATASE 48 IU/L (3-129); ANION GAP 7 MEQ/L (2-14); CHLORIDE 95 MEQ/L (99-109); GFR ESTIMATE (CALCULATED) > 59 mL/min/; GLUCOSE 96 mg/dL (70-99); POTASSIUM 3.5 MEQ/L (3.7-5.4); SAMPLE HEMOLYSIS CHECK 0; SAMPLE ICTERIC CHECK 0; SAMPLE LIPEMIA CHECK 0; SODIUM 129 MEQ/L (136-147); UREA NITROGEN (BUN) 10 mg/dL (9-23)
[2017-05-06 07:14] LABS: TOTAL BILIRUBIN 0.5 MG/DL (0.0-1.0)
[2017-05-06 10:11] VITALS: BP 121/58
[2017-05-06 11:00] VITALS: BP 135/81
[2017-05-06 15:09] VITALS: BP 131/63
[2017-05-06 20:43] VITALS: BP 130/59
[2017-05-07] VITALS (7 sets, daily range): BP systolic 133–156; BP diastolic 62–67
[2017-05-08 03:11] LABS: VANCOMYCIN, TROUGH 4.8 MCG/ML (10-20)
[2017-05-08 07:30] VITALS: BP 188/79
[2017-05-08 09:18] LABS: GFR ESTIMATE (CALCULATED) > 59 mL/min/; UREA NITROGEN (BUN) 10 mg/dL (9-23)
[2017-05-08 16:15] VITALS: BP 164/67
[2017-05-08 22:37] VITALS: BP 168/72
[2017-05-09 14:43] LABS: EOSINOPHIL (%) 1.3 % (0-5); EOSINOPHIL COUNT 0.1 K/uL (0-0.3); HEMATOCRIT 34.8 % (36.0-46.0); IMMATURE GRANULOCYTE (%) 0.4 % (0.0-0.7); INSTRUMENT ABS NEUTROPHIL CT 7.9 K/uL; LYMPHOCYTE COUNT 1.1 K/uL (1.0-2.8); MCH 30.3 PG (29.0-34.0); MCHC 32.2 G/DL (30.0-36.0); MCV 94.1 FL (83-99); MEAN PLAT.VOLUME 9.4 uM^3 (9.5-12.4); MONOCYTE (%) 8.1 % (3-12); MONOCYTE COUNT 0.8 K/uL (0-0.8); NEUTROPHIL COUNT 7.9 K/uL (1.8-6.4); PLATELET COUNT 449 K/uL (156-360); RBC DIS.WIDTH-CV 15.3 % (11.8-14.6); RBC DIS.WIDTH-SD 52.9 % (39-53)
[2017-05-09 15:00] LABS: ALKALINE PHOSPHATASE 67 IU/L (3-129); ANION GAP 10 MEQ/L (2-14); CHLORIDE 97 MEQ/L (99-109); GFR ESTIMATE (CALCULATED) > 59 mL/min/; GLUCOSE 104 mg/dL (70-99); POTASSIUM 3.8 MEQ/L (3.7-5.4); SAMPLE HEMOLYSIS CHECK 0; SAMPLE ICTERIC CHECK 0; SAMPLE LIPEMIA CHECK 0; SODIUM 132 MEQ/L (136-147); TOTAL BILIRUBIN 0.5 MG/DL (0.0-1.0)
[2017-05-09 15:01] LABS: UREA NITROGEN (BUN) 5 mg/dL (9-23)
[2017-05-09 15:41] VITALS: BP 151/67
[2017-05-09 22:57] VITALS: BP 159/73
[2017-05-10 07:35] VITALS: BP 151/65
[2017-05-10 11:54] VITALS: BP 109/53
[2017-05-10] MEDS ORDERED: CEFTIN500 MG PO (12:29)
== END 2017-05-10 14:20 | disposition home health service (06) | DRG 190 ==
LOC: EME → EDBD 21:51 → EME 21:51 → 5EAST 05-05 00:58 → EDOF 05-05 00:58 → 5EAST 05-05 13:03
PROVIDERS: Emergency Medicine; Family Medicine
DX: J44.0 Chronic obstructive pulmonary disease with (acute) lower respiratory infection (principal); J18.9 Pneumonia, unspecified organism; Y95 Nosocomial condition; N39.0 Urinary tract infection, site not specified; I10 Essential (primary) hypertension; I25.10 Atherosclerotic heart disease of native coronary artery without angina pectoris; E87.1 Hypo-osmolality and hyponatremia; I48.91 Unspecified atrial fibrillation; D64.9 Anemia, unspecified; E03.9 Hypothyroidism, unspecified; E78.5 Hyperlipidemia, unspecified; K21.9 Gastro-esophageal reflux disease without esophagitis; L40.9 Psoriasis, unspecified; G43.909 Migraine, unspecified, not intractable, without status migrainosus; I73.00 Raynaud's syndrome without gangrene; Z86.73 Personal history of transient ischemic attack (TIA), and cerebral infarction without residual deficits; Z99.81 Dependence on supplemental oxygen; Z99.3 Dependence on wheelchair; Z79.82 Long term (current) use of aspirin; Z88.1 Allergy status to other antibiotic agents; Z87.891 Personal history of nicotine dependence
CPT/HCPCS: 70450; 71020; 80053; 80162; 80170; 80202; 81003; 82565; 83605; 83690; 84484; 84520; 85025; 85610; 85730; 87040; 93005; 94640; 94640 76; 94799; 99202; 99281; 99285; J0696; J1580; J1956; J3370; J7030; J7050; J7512

== ENCOUNTER 2017-07-19 15:26 | Inpatient (IN) | payer OTHER, BC ==
[~2017-07-19] VITALS: Ht 165.1 cm; Wt 47.0 kg
[2017-07-19 16:52] LABS: EOSINOPHIL (%) 0.6 % (0-5); EOSINOPHIL COUNT 0.1 K/uL (0-0.3); HEMATOCRIT 40.2 % (36.0-46.0); IMMATURE GRANULOCYTE (%) 0.3 % (0.0-0.7); INSTRUMENT ABS NEUTROPHIL CT 7.4 K/uL; LYMPHOCYTE COUNT 1.7 K/uL (1.0-2.8); MCH 30.5 PG (29.0-34.0); MCHC 32.6 G/DL (30.0-36.0); MCV 93.7 FL (83-99); MONOCYTE (%) 12.1 % (3-12); MONOCYTE COUNT 1.3 K/uL (0-0.8); NEUTROPHIL (%) 70.5 % (45-76); NEUTROPHIL COUNT 7.4 K/uL (1.8-6.4); RBC DIS.WIDTH-CV 15.2 % (11.8-14.6); RBC DIS.WIDTH-SD 52.4 % (39-53); RED BLOOD COUNT 4.29 M/uL (3.80-5.20); WHITE BLOOD COUNT 10.5 K/uL (4.1-10.2)
[2017-07-19 17:02] LABS: CHLORIDE 94 mEq/L (99-109); POTASSIUM 4.1 mEq/L (3.7-5.4); SODIUM 131 mEq/L (136-147)
[2017-07-19 17:04] LABS: GLUCOSE 101 mg/dL (70-99)
[2017-07-19 17:05] LABS: ANION GAP 12 MEQ/L (2-14)
[2017-07-19 17:07] LABS: GFR ESTIMATE (CALCULATED) > 59 mL/min/
[2017-07-19 17:08] LABS: UREA NITROGEN (BUN) 8 mg/dL (9-23)
[2017-07-19 17:48] LABS: ANISOCYTOSIS 1+; BURR CELLS 1+; MACROCYTES 1+; MICROCYTOSIS 1+; PLAT.SUFFICIENCY ADEQUATE; PLATELET CLUMPS PRESENT - PLATELET COUNT APPEARS ADQ.; PLATELET COUNT UNABLE TO REPORT K/uL (156-360); SCHISTOCYTES 1+; SPHEROCYTES 1+
[2017-07-19 19:28] LABS: TROP-I INTERPRETATION NEGATIVE; TROPONIN-I 0.02 ng/mL (0.0-0.30)
[2017-07-19 20:56] LABS: TOTAL BILIRUBIN 0.8 mg/dL (0.0-1.0)
[2017-07-19 20:57] LABS: ALKALINE PHOSPHATASE 77 IU/L (3-129)
[2017-07-19 20:59] LABS: DIRECT BILIRUBIN 0.4 mg/dL (0.0-0.3)
[2017-07-19] MEDS ORDERED: ARICEPT5 MG PO (23:43)
[2017-07-19 23:59] VITALS: BP 161/68
[2017-07-20 04:38] VITALS: BP 151/68
[2017-07-20 07:51] VITALS: BP 132/49
[2017-07-20 11:52] VITALS: BP 137/76
[2017-07-20 15:33] VITALS: BP 120/58
[2017-07-20] MEDS ORDERED: ADVAIR HFA120 INHALA IH (16:08)
[2017-07-20] MEDS ORDERED: ROBITUSSIN DM118 ML PO (16:08)
[2017-07-20 19:57] VITALS: BP 128/60
[2017-07-20 23:32] VITALS: BP 134/63
[2017-07-21 03:44] VITALS: BP 127/64
[2017-07-21 06:14] LABS: EOSINOPHIL (%) 0.3 % (0-5); HEMATOCRIT 33.3 % (36.0-46.0); IMMATURE GRANULOCYTE (%) 0.3 % (0.0-0.7); INSTRUMENT ABS NEUTROPHIL CT 5.9 K/uL; LYMPHOCYTE COUNT 2.1 K/uL (1.0-2.8); MCHC 33.6 G/DL (30.0-36.0); MCV 95.1 FL (83-99); MEAN PLAT.VOLUME 9.5 uM^3 (9.5-12.4); MONOCYTE (%) 10.9 % (3-12); NEUTROPHIL (%) 65.3 % (45-76); NEUTROPHIL COUNT 5.9 K/uL (1.8-6.4); PLATELET COUNT 304 K/uL (156-360); RBC DIS.WIDTH-CV 15.3 % (11.8-14.6); RBC DIS.WIDTH-SD 53.2 % (39-53)
[2017-07-21 06:41] LABS: ALKALINE PHOSPHATASE 57 IU/L (3-129); ANION GAP 9 MEQ/L (2-14); CHLORIDE 99 MEQ/L (99-109); GFR ESTIMATE (CALCULATED) > 59 mL/min/; GLUCOSE 107 mg/dL (70-99); POTASSIUM 3.9 MEQ/L (3.7-5.4); SAMPLE HEMOLYSIS CHECK 0; SAMPLE ICTERIC CHECK 0; SAMPLE LIPEMIA CHECK 0; TOTAL BILIRUBIN 0.7 MG/DL (0.0-1.0); UREA NITROGEN (BUN) 11 mg/dL (9-23)
[2017-07-21 06:42] LABS: SODIUM 138 MEQ/L (136-147)
[2017-07-21 07:57] VITALS: BP 137/62
[2017-07-21 12:12] VITALS: BP 145/55
[2017-07-21 15:20] VITALS: BP 133/62
[2017-07-21 15:32] LABS: HDL CHOLESTEROL 44 MG/DL (Desirable>=50); LDL CHOLESTEROL 46 mg/dL (Desirable<100); NON-HDL CHOLESTEROL 61 mg/dL (Desirable<160); TOTAL CHOLESTEROL 105 mg/dL (Desirable<200); TRIGLYCERIDES 75 MG/DL (Normal: <150)
[2017-07-21 20:02] VITALS: BP 107/53
[2017-07-22] VITALS (7 sets, daily range): BP systolic 121–158; BP diastolic 52–84
[2017-07-22 21:12] LABS: ADD MIUA? NO; BILIRUBIN NEGATIVE; BLOOD NEGATIVE; COLOR YELLOW ((YELLOW)); GLUCOSE (STRIP) NEGATIVE; KETONES NEGATIVE; LEUKOCYTES NEGATIVE; NITRITE NEGATIVE; PROTEIN (STRIP) NEGATIVE; UROBILINOGEN 0.2 MG/DL (0.2-1.0)
[2017-07-22 21:12] LABS: BASOPHIL COUNT 0.1 K/uL (0-0.1); EOSINOPHIL (%) 0.5 % (0-5); EOSINOPHIL COUNT 0.1 K/uL (0-0.3); HEMATOCRIT 41.4 % (36.0-46.0); IMMATURE GRANULOCYTE (%) 0.4 % (0.0-0.7); IMMATURE GRANULOCYTE COUNT 0.1 K/uL; INSTRUMENT ABS NEUTROPHIL CT 7.3 K/uL; LYMPHOCYTE COUNT 2.9 K/uL (1.0-2.8); MCH 31.2 PG (29.0-34.0); MCHC 33.3 G/DL (30.0-36.0); MCV 93.7 FL (83-99); MEAN PLAT.VOLUME 9.5 uM^3 (9.5-12.4); MONOCYTE (%) 9.1 % (3-12); NEUTROPHIL (%) 64.3 % (45-76); NEUTROPHIL COUNT 7.3 K/uL (1.8-6.4); PLATELET COUNT 257 K/uL (156-360); RBC DIS.WIDTH-SD 51.9 % (39-53); WHITE BLOOD COUNT 11.4 K/uL (4.1-10.2)
[2017-07-22 21:17] LABS: RED BLOOD COUNT 4.42 M/uL (3.80-5.20)
[2017-07-22 22:02] LABS: ANION GAP 11 MEQ/L (2-14); CHLORIDE 90 MEQ/L (99-109); POTASSIUM 3.3 MEQ/L (3.7-5.4); SAMPLE HEMOLYSIS CHECK 0; SAMPLE ICTERIC CHECK 0; SAMPLE LIPEMIA CHECK 0; SODIUM 135 MEQ/L (136-147); TOTAL BILIRUBIN 0.6 MG/DL (0.0-1.0)
[2017-07-22 22:30] LABS: ALKALINE PHOSPHATASE 67 IU/L (3-129); GFR ESTIMATE (CALCULATED) > 59 mL/min/; GLUCOSE 114 mg/dL (70-99); UREA NITROGEN (BUN) 16 mg/dL (9-23)
[2017-07-23 00:30] VITALS: BP 168/66
[2017-07-23 04:22] VITALS: BP 105/56
[2017-07-23 07:57] VITALS: BP 115/56
[2017-07-23 11:50] VITALS: BP 121/62
[2017-07-23 16:00] VITALS: BP 136/61
[2017-07-23 20:01] VITALS: BP 102/61
[2017-07-24 00:16] VITALS: BP 150/57
[2017-07-24 04:07] VITALS: BP 154/71
[2017-07-24 07:29] VITALS: BP 155/69
[2017-07-24 15:20] VITALS: BP 123/58
[2017-07-25 00:04] VITALS: BP 167/61
[2017-07-25 08:33] VITALS: BP 155/90
[2017-07-25 11:37] VITALS: BP 162/89
[2017-07-25 16:00] VITALS: BP 160/82
[2017-07-25 19:55] VITALS: BP 158/56
[2017-07-25 23:43] VITALS: BP 152/64
[2017-07-26 04:28] VITALS: BP 149/78
[2017-07-26 06:57] LABS: EOSINOPHIL (%) 0 % (0-5); HEMATOCRIT 32.3 % (36.0-46.0); IMMATURE GRANULOCYTE (%) 0.6 % (0.0-0.7); IMMATURE GRANULOCYTE COUNT 0.1 K/uL; INSTRUMENT ABS NEUTROPHIL CT 7.5 K/uL; LYMPHOCYTE COUNT 1.3 K/uL (1.0-2.8); MCH 31.5 PG (29.0-34.0); MCHC 32.8 G/DL (30.0-36.0); MCV 96.1 FL (83-99); MEAN PLAT.VOLUME 9.6 uM^3 (9.5-12.4); MONOCYTE (%) 9.7 % (3-12); NEUTROPHIL (%) 76.5 % (45-76); NEUTROPHIL COUNT 7.5 K/uL (1.8-6.4); PLATELET COUNT 319 K/uL (156-360); RBC DIS.WIDTH-CV 14.6 % (11.8-14.6); RBC DIS.WIDTH-SD 51.8 % (39-53); WHITE BLOOD COUNT 9.8 K/uL (4.1-10.2)
[2017-07-26 07:12] LABS: ALKALINE PHOSPHATASE 54 IU/L (3-129); ANION GAP 8 MEQ/L (2-14); CHLORIDE 95 MEQ/L (99-109); GFR ESTIMATE (CALCULATED) > 59 mL/min/; GLUCOSE 102 mg/dL (70-99); SAMPLE HEMOLYSIS CHECK 0; SAMPLE ICTERIC CHECK 0; SAMPLE LIPEMIA CHECK 0; SODIUM 137 MEQ/L (136-147); TOTAL BILIRUBIN 0.5 MG/DL (0.0-1.0); UREA NITROGEN (BUN) 16 mg/dL (9-23)
[2017-07-26 07:22] LABS: POTASSIUM 4.1 MEQ/L (3.7-5.4)
[2017-07-26 07:33] LABS: RED BLOOD COUNT 3.36 M/uL (3.80-5.20)
[2017-07-26 07:59] VITALS: BP 183/78
[2017-07-26 11:38] VITALS: BP 180/75
[2017-07-26 16:00] VITALS: BP 129/58
[2017-07-26 20:12] VITALS: BP 148/66
[2017-07-27] VITALS (7 sets, daily range): BP systolic 141–180; BP diastolic 67–78
[2017-07-28 03:54] VITALS: BP 159/63
[2017-07-28 06:45] LABS: ADD MIUA? NO; BILIRUBIN NEGATIVE; BLOOD NEGATIVE; COLOR STRAW ((YELLOW)); GLUCOSE (STRIP) NEGATIVE; KETONES NEGATIVE; LEUKOCYTES NEGATIVE; NITRITE NEGATIVE; PROTEIN (STRIP) NEGATIVE; SPECIFIC GRAVITY 1.008 (1.000-1.030); UROBILINOGEN 0.2 MG/DL (0.2-1.0)
[2017-07-28 07:45] VITALS: BP 152/66
[2017-07-28 11:00] VITALS: BP 152/66
[2017-07-28 15:47] VITALS: BP 139/53
[2017-07-28 21:02] VITALS: BP 140/63
[2017-07-28 23:51] VITALS: BP 150/69
[2017-07-29 04:13] VITALS: BP 139/60
[2017-07-29 08:44] VITALS: BP 145/74
[2017-07-29 11:36] VITALS: BP 147/56
[2017-07-29 20:03] VITALS: BP 130/59
[2017-07-29 23:46] VITALS: BP 166/73
[2017-07-30 07:54] VITALS: BP 114/53
[2017-07-30 11:18] VITALS: BP 141/57
[2017-07-30] MEDS ORDERED: AMPICILLIN TRI500 MG PO (14:28)
== END 2017-07-30 15:35 | disposition home health service (06) | DRG 988 ==
LOC: EME 15:26 → RME 15:26 → EDOF 20:46 → 5SOUTH 20:46 → ENRESERV 20:50 → 5SOUTH 23:28
PROVIDERS: Family Medicine; Physician Assistant Medical
DX: I61.3 Nontraumatic intracerebral hemorrhage in brain stem (principal); R47.81 Slurred speech; E44.0 Moderate protein-calorie malnutrition; N39.0 Urinary tract infection, site not specified; B95.2 Enterococcus as the cause of diseases classified elsewhere; E87.1 Hypo-osmolality and hyponatremia; J44.0 Chronic obstructive pulmonary disease with (acute) lower respiratory infection; J20.9 Acute bronchitis, unspecified; J44.1 Chronic obstructive pulmonary disease with (acute) exacerbation; T17.890A Other foreign object in other parts of respiratory tract causing asphyxiation, initial encounter; J96.11 Chronic respiratory failure with hypoxia; J96.12 Chronic respiratory failure with hypercapnia; E03.9 Hypothyroidism, unspecified; E78.5 Hyperlipidemia, unspecified; I10 Essential (primary) hypertension; G43.909 Migraine, unspecified, not intractable, without status migrainosus; F03.90 Unspecified dementia, unspecified severity, without behavioral disturbance, psychotic disturbance, mood disturbance, and anxiety; F17.200 Nicotine dependence, unspecified, uncomplicated; I25.10 Atherosclerotic heart disease of native coronary artery without angina pectoris; K21.9 Gastro-esophageal reflux disease without esophagitis; I73.00 Raynaud's syndrome without gangrene; J32.3 Chronic sphenoidal sinusitis; M35.3 Polymyalgia rheumatica; L40.9 Psoriasis, unspecified; Z99.3 Dependence on wheelchair; Z99.81 Dependence on supplemental oxygen; Z86.73 Personal history of transient ischemic attack (TIA), and cerebral infarction without residual deficits; Z79.82 Long term (current) use of aspirin
CPT/HCPCS: 70450; 70551; 71010; 71020; 71250; 76937; 80048; 80053; 80061; 80076; 80162; 81003; 83605; 84484; 85025; 87040; 87077; 87086; 87116; 87186; 87206; 88108; 93005; 94010; 94640 76; 94667; 94668; 94760; 94799; 97530 GO; 97530 GP; 99202; 99281; 99285; C1753; J0461; J0696; J2175; J2250; J2310; J2405; J3010; J7030; J7050; J7512

== ENCOUNTER 2017-07-31 08:34 | Inpatient (IN) | payer OTHER, BC ==
[~2017-07-31] VITALS: Ht 165.1 cm; Wt 51.2 kg
[~2017-07-31 08:34] MED LIST changes: +ARICEPT5 MG PO; +ROBITUSSIN DM118 ML PO
[2017-07-31 09:31] LABS: EOSINOPHIL (%) 0.4 % (0-5); EOSINOPHIL COUNT 0.1 K/uL (0-0.3); IMMATURE GRANULOCYTE (%) 0.7 % (0.0-0.7); IMMATURE GRANULOCYTE COUNT 0.1 K/uL; INSTRUMENT ABS NEUTROPHIL CT 16.5 K/uL; LYMPHOCYTE COUNT 2.1 K/uL (1.0-2.8); MCH 30.5 PG (29.0-34.0); MCHC 31.8 G/DL (30.0-36.0); MCV 95.9 FL (83-99); MEAN PLAT.VOLUME 9.2 uM^3 (9.5-12.4); MONOCYTE (%) 2.5 % (3-12); MONOCYTE COUNT 0.5 K/uL (0-0.8); NEUTROPHIL (%) 85.6 % (45-76); NEUTROPHIL COUNT 16.5 K/uL (1.8-6.4); PLATELET COUNT 385 K/uL (156-360); RBC DIS.WIDTH-CV 14.9 % (11.8-14.6); RBC DIS.WIDTH-SD 52.1 % (39-53); RED BLOOD COUNT 4.17 M/uL (3.80-5.20); WHITE BLOOD COUNT 19.3 K/uL (4.1-10.2)
[2017-07-31 09:38] LABS: CHLORIDE 91 mEq/L (99-109); POTASSIUM 3.9 mEq/L (3.7-5.4); SODIUM 138 mEq/L (136-147)
[2017-07-31 09:40] LABS: GLUCOSE 97 mg/dL (70-99)
[2017-07-31 09:42] LABS: ANION GAP 11 MEQ/L (2-14); TOTAL BILIRUBIN 0.7 mg/dL (0.0-1.0)
[2017-07-31 09:44] LABS: ALKALINE PHOSPHATASE 64 IU/L (3-129); GFR ESTIMATE (CALCULATED) > 59 mL/min/
[2017-07-31 09:45] LABS: UREA NITROGEN (BUN) 23 mg/dL (9-23)
[2017-07-31 09:47] LABS: LIPASE 18 U/L (1.0-51.0)
[2017-07-31 19:04] LABS: HEMATOCRIT 40.4 % (36.0-46.0); MCH 30.8 PG (29.0-34.0); MCHC 31.7 G/DL (30.0-36.0); MCV 97.3 FL (83-99); MEAN PLAT.VOLUME 9.4 uM^3 (9.5-12.4); PLATELET COUNT 397 K/uL (156-360); RBC DIS.WIDTH-SD 53.5 % (39-53); RED BLOOD COUNT 4.15 M/uL (3.80-5.20); WHITE BLOOD COUNT 18.6 K/uL (4.1-10.2)
[2017-07-31 20:05] LABS: ANION GAP 10 MEQ/L (2-14); CHLORIDE 99 MEQ/L (99-109); GFR ESTIMATE (CALCULATED) > 59 mL/min/; GLUCOSE 95 mg/dL (70-99); POTASSIUM 4.2 MEQ/L (3.7-5.4); SAMPLE HEMOLYSIS CHECK 0; SAMPLE ICTERIC CHECK 0; SAMPLE LIPEMIA CHECK 0; SODIUM 140 MEQ/L (136-147); UREA NITROGEN (BUN) 20 mg/dL (9-23)
[2017-07-31 21:05] VITALS: BP 157/73
[2017-07-31 21:15] VITALS: BP 151/76
[2017-07-31 21:30] VITALS: BP 121/78
[2017-07-31 22:00] VITALS: BP 89/57
[2017-07-31 22:16] LABS: BASE EXCESS 7.1 mEq/L (-3 to +3); BICARBONATE 31.3 mEq/L (22-26); CARBOXY HGB 2.3 % (0-5); METHEMOGLOBIN 1.7 % (0-1.5); PCO2 42 mm Hg (35-45); PO2 49 mm Hg (80-100); SITE LB; pH 7.48 (7.35-7.45)
[2017-07-31 22:17] LABS: COMMENTS - BLOOD GASES C+; DEVICE 980; FI02 40 %; MECHANICAL RATE 16 resp/min; MODE AC; PEEP 5 CM/H20; TIDAL VOLUME 400 ML; TOTAL RESP RATE 23 resp/min
[2017-07-31 23:00] VITALS: BP 97/47
[2017-07-31 23:54] LABS: METH RESISTANT S AUREUS PCR NEGATIVE (NEGATIVE)
[2017-08-01] VITALS (23 sets, daily range): BP systolic 64–146; BP diastolic 35–105
[2017-08-01] LABS: PROBE CHECK PASS; SPECIMEN PROCESSING CONTROL PASS
[2017-08-01 06:43] LABS: HEMATOCRIT 29.1 % (36.0-46.0); MCH 30.4 PG (29.0-34.0); MCHC 31.3 G/DL (30.0-36.0); MCV 97.3 FL (83-99); MEAN PLAT.VOLUME 9.9 uM^3 (9.5-12.4); PLATELET COUNT 300 K/uL (156-360); RBC DIS.WIDTH-CV 15.2 % (11.8-14.6); RBC DIS.WIDTH-SD 53.9 % (39-53); RED BLOOD COUNT 2.99 M/uL (3.80-5.20); WHITE BLOOD COUNT 20.7 K/uL (4.1-10.2)
[2017-08-01 07:00] LABS: ANION GAP 11 MEQ/L (2-14); CHLORIDE 101 MEQ/L (99-109); GFR ESTIMATE (CALCULATED) 50 mL/min/; GLUCOSE 86 mg/dL (70-99); MAGNESIUM 1.4 mg/dl (1.3-2.7); POTASSIUM 4.5 MEQ/L (3.7-5.4); SAMPLE HEMOLYSIS CHECK 0; SAMPLE ICTERIC CHECK 0; SAMPLE LIPEMIA CHECK 0; SODIUM 136 MEQ/L (136-147); UREA NITROGEN (BUN) 23 mg/dL (9-23)
[2017-08-01 23:59] LABS: ADD MIUA? YES; BILIRUBIN NEGATIVE; BLOOD MODERATE; COLOR AMBER ((YELLOW)); GLUCOSE (STRIP) NEGATIVE; KETONES NEGATIVE; LEUKOCYTES TRACE; NITRITE NEGATIVE; PROTEIN (STRIP) 30; SPECIFIC GRAVITY 1.029 (1.000-1.030); UROBILINOGEN 0.2 MG/DL (0.2-1.0)
[2017-08-02] VITALS (23 sets, daily range): BP systolic 107–156; BP diastolic 41–106
[2017-08-02 00:18] LABS: BACTERIA NONE SEEN /HPF; EPITHELIAL CELLS NONE SEEN /HPF; GRANULAR CASTS 0-5 /LPF; HYALINE CASTS 0-5 /LPF; MUCUS TRACE /LPF; RED BLOOD CELLS 40-50 /HPF (0-5); UCUL ADDED? YES
[2017-08-02 06:44] LABS: HEMATOCRIT 29.5 % (36.0-46.0); MCH 31.6 PG (29.0-34.0); MCHC 32.9 G/DL (30.0-36.0); MCV 96.1 FL (83-99); MEAN PLAT.VOLUME 9.8 uM^3 (9.5-12.4); PLATELET COUNT 327 K/uL (156-360); RBC DIS.WIDTH-CV 15.7 % (11.8-14.6); RED BLOOD COUNT 3.07 M/uL (3.80-5.20); WHITE BLOOD COUNT 22.3 K/uL (4.1-10.2)
[2017-08-02 07:10] LABS: ANION GAP 11 MEQ/L (2-14); CHLORIDE 108 MEQ/L (99-109); GFR ESTIMATE (CALCULATED) 41 mL/min/; GLUCOSE 89 mg/dL (70-99); POTASSIUM 4.6 MEQ/L (3.7-5.4); SAMPLE HEMOLYSIS CHECK 0; SAMPLE ICTERIC CHECK 0; SAMPLE LIPEMIA CHECK 0; SODIUM 140 MEQ/L (136-147); UREA NITROGEN (BUN) 27 mg/dL (9-23)
[2017-08-02 07:16] LABS: MAGNESIUM 1.9 mg/dl (1.3-2.7)
[2017-08-03] VITALS (23 sets, daily range): BP systolic 135–187; BP diastolic 50–103
[2017-08-03 05:32] LABS: CHLORIDE 113 mEq/L (99-109); POTASSIUM 3.8 mEq/L (3.7-5.4); SODIUM 143 mEq/L (136-147)
[2017-08-03 05:34] LABS: GLUCOSE 62 mg/dL (70-99)
[2017-08-03 05:35] LABS: ANION GAP 9 MEQ/L (2-14); HEMATOCRIT 28.3 % (36.0-46.0); MCH 30.5 PG (29.0-34.0); MCHC 31.8 G/DL (30.0-36.0); MCV 95.9 FL (83-99); MEAN PLAT.VOLUME 9.9 uM^3 (9.5-12.4); PLATELET COUNT 298 K/uL (156-360); RBC DIS.WIDTH-CV 15.4 % (11.8-14.6); RBC DIS.WIDTH-SD 54.2 % (39-53); RED BLOOD COUNT 2.95 M/uL (3.80-5.20); WHITE BLOOD COUNT 20.6 K/uL (4.1-10.2)
[2017-08-03 05:38] LABS: GFR ESTIMATE (CALCULATED) > 59 mL/min/
[2017-08-03 05:39] LABS: UREA NITROGEN (BUN) 32 mg/dL (9-23)
[2017-08-03 07:03] LABS: EOSINOPHIL (%) 0 % (0-5); IMMATURE GRANULOCYTE (%) 2.8 % (0.0-0.7); IMMATURE GRANULOCYTE COUNT 0.6 K/uL; INSTRUMENT ABS NEUTROPHIL CT 19.1 K/uL; LYMPHOCYTE COUNT 0.3 K/uL (1.0-2.8); MONOCYTE (%) 3.3 % (3-12); MONOCYTE COUNT 0.7 K/uL (0-0.8); NEUTROPHIL (%) 92.4 % (45-76); NEUTROPHIL COUNT 19.1 K/uL (1.8-6.4)
[2017-08-04] VITALS (23 sets, daily range): BP systolic 149–175; BP diastolic 60–88
[2017-08-04 07:52] LABS: POINT-OF-CARE METER ID UU13113748
[2017-08-04 08:59] LABS: POINT-OF-CARE METER ID UU13113748
[2017-08-04 09:19] LABS: EOSINOPHIL (%) 0 % (0-5); HEMATOCRIT 30.2 % (36.0-46.0); IMMATURE GRANULOCYTE (%) 0.7 % (0.0-0.7); IMMATURE GRANULOCYTE COUNT 0.1 K/uL; INSTRUMENT ABS NEUTROPHIL CT 18.1 K/uL; LYMPHOCYTE COUNT 0.4 K/uL (1.0-2.8); MCH 30.4 PG (29.0-34.0); MCHC 31.8 G/DL (30.0-36.0); MCV 95.6 FL (83-99); MEAN PLAT.VOLUME 9.7 uM^3 (9.5-12.4); MONOCYTE (%) 3.8 % (3-12); MONOCYTE COUNT 0.7 K/uL (0-0.8); NEUTROPHIL (%) 93.6 % (45-76); NEUTROPHIL COUNT 18.1 K/uL (1.8-6.4); PLATELET COUNT 319 K/uL (156-360); RBC DIS.WIDTH-CV 15.7 % (11.8-14.6); RBC DIS.WIDTH-SD 55.4 % (39-53); RED BLOOD COUNT 3.16 M/uL (3.80-5.20); WHITE BLOOD COUNT 19.3 K/uL (4.1-10.2)
[2017-08-04 09:45] LABS: ANION GAP 14 MEQ/L (2-14); CHLORIDE 118 MEQ/L (99-109); CREATINE KINASE 84 IU/L (1-294); GFR ESTIMATE (CALCULATED) > 59 mL/min/; GLUCOSE 114 mg/dL (70-99); POTASSIUM 3.5 MEQ/L (3.7-5.4); SAMPLE HEMOLYSIS CHECK 0; SAMPLE ICTERIC CHECK 0; SAMPLE LIPEMIA CHECK 0; SODIUM 146 MEQ/L (136-147); UREA NITROGEN (BUN) 38 mg/dL (9-23)
[2017-08-04 10:21] LABS: POINT-OF-CARE METER ID UU13113748
[2017-08-04 10:44] LABS: BASE EXCESS -6.4 mEq/L (-3 to +3); BICARBONATE 17.6 mEq/L (22-26); CARBOXY HGB 1.5 % (0-5); METHEMOGLOBIN 1.5 % (0-1.5); PCO2 29 mm Hg (35-45); PO2 82 mm Hg (80-100); SITE LR; pH 7.39 (7.35-7.45)
[2017-08-04 10:45] LABS: COMMENTS - BLOOD GASES A+C+; DEVICE 980; FI02 30 %; MODE SPONT; TOTAL RESP RATE 17 resp/min
[2017-08-04 10:46] LABS: PRES. SUPPORT 14 CM/H2O
[2017-08-04 14:41] LABS: POINT-OF-CARE METER ID UU13113748
[2017-08-04 18:06] LABS: POINT-OF-CARE METER ID UU13113748
[2017-08-04 21:58] LABS: POINT-OF-CARE METER ID UU14162636
[2017-08-05] VITALS (20 sets, daily range): BP systolic 130–187; BP diastolic 49–83
[2017-08-05 04:52] LABS: POINT-OF-CARE METER ID UU13113748
[2017-08-05 05:01] LABS: HEMATOCRIT 31.7 % (36.0-46.0); MCH 30.2 PG (29.0-34.0); MCHC 31.9 G/DL (30.0-36.0); MCV 94.9 FL (83-99); PLATELET COUNT 284 K/uL (156-360); RBC DIS.WIDTH-CV 15.6 % (11.8-14.6); RBC DIS.WIDTH-SD 54.2 % (39-53); RED BLOOD COUNT 3.34 M/uL (3.80-5.20); WHITE BLOOD COUNT 19.2 K/uL (4.1-10.2)
[2017-08-05 05:10] LABS: CHLORIDE 120 mEq/L (99-109); POTASSIUM 3.8 mEq/L (3.7-5.4); SODIUM 148 mEq/L (136-147)
[2017-08-05 05:12] LABS: GLUCOSE 150 mg/dL (70-99)
[2017-08-05 05:13] LABS: ANION GAP 11 MEQ/L (2-14)
[2017-08-05 05:16] LABS: GFR ESTIMATE (CALCULATED) > 59 mL/min/
[2017-08-05 05:17] LABS: UREA NITROGEN (BUN) 39 mg/dL (9-23)
[2017-08-06] VITALS (9 sets, daily range): BP systolic 133–163; BP diastolic 56–79
[2017-08-06 04:54] LABS: HEMATOCRIT 36.3 % (36.0-46.0); MCH 30.4 PG (29.0-34.0); MCV 95.3 FL (83-99); RBC DIS.WIDTH-CV 15.8 % (11.8-14.6); RED BLOOD COUNT 3.81 M/uL (3.80-5.20); WHITE BLOOD COUNT 18.5 K/uL (4.1-10.2)
[2017-08-06 05:00] LABS: CHLORIDE 120 mEq/L (99-109); POTASSIUM 3.6 mEq/L (3.7-5.4); SODIUM 151 mEq/L (136-147)
[2017-08-06 05:02] LABS: GLUCOSE 144 mg/dL (70-99)
[2017-08-06 05:03] LABS: ANION GAP 12 MEQ/L (2-14)
[2017-08-06 05:04] LABS: TOTAL BILIRUBIN 0.8 mg/dL (0.0-1.0)
[2017-08-06 05:06] LABS: ALKALINE PHOSPHATASE 62 IU/L (3-129); GFR ESTIMATE (CALCULATED) > 59 mL/min/
[2017-08-06 05:07] LABS: UREA NITROGEN (BUN) 37 mg/dL (9-23)
[2017-08-06 05:35] LABS: MEAN PLAT.VOLUME 10.8 uM^3 (9.5-12.4); PLAT.SUFFICIENCY ADEQUATE
[2017-08-06 06:06] LABS: PLATELET COUNT 189 K/uL (156-360)
[2017-08-06 17:19] LABS: ADD MIUA? YES; BILIRUBIN NEGATIVE; BLOOD SMALL; COLOR COLORLESS ((YELLOW)); GLUCOSE (STRIP) NEGATIVE; KETONES NEGATIVE; LEUKOCYTES NEGATIVE; NITRITE NEGATIVE; PROTEIN (STRIP) NEGATIVE; SPECIFIC GRAVITY 1.005 (1.000-1.030); UROBILINOGEN 0.2 MG/DL (0.2-1.0)
[2017-08-06 17:51] LABS: BACTERIA RARE /HPF; CASTS PRESENT /LPF; CRYSTALS NONE SEEN; EPITHELIAL CELLS 1+ /HPF; MUCUS NONE SEEN /LPF; UCUL ADDED? YES
[2017-08-06 17:52] LABS: HYALINE CASTS 0-5 /LPF
[2017-08-07] VITALS (9 sets, daily range): BP systolic 118–168; BP diastolic 35–56
[2017-08-07 04:55] LABS: CHLORIDE 117 mEq/L (99-109); EOSINOPHIL (%) 0.2 % (0-5); HEMATOCRIT 28.9 % (36.0-46.0); IMMATURE GRANULOCYTE (%) 0.6 % (0.0-0.7); IMMATURE GRANULOCYTE COUNT 0.1 K/uL; INSTRUMENT ABS NEUTROPHIL CT 11.4 K/uL; MCH 30.5 PG (29.0-34.0); MCHC 32.2 G/DL (30.0-36.0); MCV 94.8 FL (83-99); MONOCYTE (%) 4.5 % (3-12); MONOCYTE COUNT 0.6 K/uL (0-0.8); NEUTROPHIL COUNT 11.4 K/uL (1.8-6.4); POTASSIUM 3.4 mEq/L (3.7-5.4); RBC DIS.WIDTH-CV 15.8 % (11.8-14.6); RBC DIS.WIDTH-SD 54.5 % (39-53); RED BLOOD COUNT 3.05 M/uL (3.80-5.20); SODIUM 148 mEq/L (136-147)
[2017-08-07 04:58] LABS: GLUCOSE 152 mg/dL (70-99)
[2017-08-07 04:59] LABS: ANION GAP 8 MEQ/L (2-14)
[2017-08-07 05:01] LABS: ALKALINE PHOSPHATASE 54 IU/L (3-129); GFR ESTIMATE (CALCULATED) > 59 mL/min/
[2017-08-07 05:03] LABS: UREA NITROGEN (BUN) 37 mg/dL (9-23)
[2017-08-07 05:08] LABS: TOTAL BILIRUBIN 0.6 mg/dL (0.0-1.0)
[2017-08-07 05:45] LABS: PLAT.SUFFICIENCY ADEQUATE
[2017-08-07 05:46] LABS: PLATELET CLUMPS PRESENT - PLATELET C
[2017-08-08] VITALS (11 sets, daily range): BP systolic 108–144; BP diastolic 28–58
[2017-08-08 03:24] LABS: EOSINOPHIL (%) 0.1 % (0-5); HEMATOCRIT 27.8 % (36.0-46.0); IMMATURE GRANULOCYTE (%) 0.7 % (0.0-0.7); IMMATURE GRANULOCYTE COUNT 0.1 K/uL; INSTRUMENT ABS NEUTROPHIL CT 11.5 K/uL; LYMPHOCYTE COUNT 0.5 K/uL (1.0-2.8); MCH 30.2 PG (29.0-34.0); MCHC 31.7 G/DL (30.0-36.0); MCV 95.5 FL (83-99); MEAN PLAT.VOLUME 12.2 uM^3 (9.5-12.4); MONOCYTE (%) 1.1 % (3-12); MONOCYTE COUNT 0.1 K/uL (0-0.8); NEUTROPHIL (%) 93.7 % (45-76); NEUTROPHIL COUNT 11.5 K/uL (1.8-6.4); PLATELET COUNT 119 K/uL (156-360); RBC DIS.WIDTH-CV 15.7 % (11.8-14.6); RBC DIS.WIDTH-SD 54.5 % (39-53); RED BLOOD COUNT 2.91 M/uL (3.80-5.20); WHITE BLOOD COUNT 12.2 K/uL (4.1-10.2)
[2017-08-08 03:47] LABS: SODIUM 144 mEq/L (136-147)
[2017-08-08 03:48] LABS: MAGNESIUM 1.5 mg/dL (1.3-2.7)
[2017-08-08 03:49] LABS: GLUCOSE 130 mg/dL (70-99)
[2017-08-08 03:51] LABS: ANION GAP 9 MEQ/L (2-14); TOTAL BILIRUBIN 0.7 mg/dL (0.0-1.0)
[2017-08-08 03:53] LABS: ALKALINE PHOSPHATASE 43 IU/L (3-129); GFR ESTIMATE (CALCULATED) > 59 mL/min/
[2017-08-08 03:54] LABS: UREA NITROGEN (BUN) 30 mg/dL (9-23)
[2017-08-08 03:59] LABS: CHLORIDE 105 mEq/L (99-109); POTASSIUM 4.2 mEq/L (3.7-5.4)
[2017-08-09] VITALS (9 sets, daily range): BP systolic 115–150; BP diastolic 40–63
[2017-08-09 05:58] LABS: HEMATOCRIT 25.9 % (36.0-46.0); MCHC 32.4 G/DL (30.0-36.0); MCV 95.6 FL (83-99); MEAN PLAT.VOLUME 12.9 uM^3 (9.5-12.4); PLATELET COUNT 144 K/uL (156-360); RBC DIS.WIDTH-CV 15.5 % (11.8-14.6); RED BLOOD COUNT 2.71 M/uL (3.80-5.20); WHITE BLOOD COUNT 13.7 K/uL (4.1-10.2)
[2017-08-09 06:42] LABS: ALKALINE PHOSPHATASE 39 IU/L (3-129); ANION GAP 9 MEQ/L (2-14); GFR ESTIMATE (CALCULATED) > 59 mL/min/; GLUCOSE 144 mg/dL (70-99); POTASSIUM 3.8 MEQ/L (3.7-5.4); SAMPLE HEMOLYSIS CHECK 0; SAMPLE ICTERIC CHECK 0; SAMPLE LIPEMIA CHECK 0; SODIUM 144 MEQ/L (136-147); TOTAL BILIRUBIN 0.6 MG/DL (0.0-1.0); UREA NITROGEN (BUN) 29 mg/dL (9-23)
[2017-08-09 06:51] LABS: CHLORIDE 101 MEQ/L (99-109)
[2017-08-09 20:00] LABS: C DIFF TOXIN NEGATIVE (NEGATIVE); PROBE CHECK PASS; SPECIMEN PROCESSING CONTROL PASS
[2017-08-10] VITALS (10 sets, daily range): BP systolic 109–158; BP diastolic 48–91
[2017-08-10 05:50] LABS: HEMATOCRIT 27.3 % (36.0-46.0); MCH 31.8 PG (29.0-34.0); MCHC 33.3 G/DL (30.0-36.0); MCV 95.5 FL (83-99); MEAN PLAT.VOLUME 11.5 uM^3 (9.5-12.4); RBC DIS.WIDTH-CV 15.4 % (11.8-14.6); RBC DIS.WIDTH-SD 52.8 % (39-53); RED BLOOD COUNT 2.86 M/uL (3.80-5.20)
[2017-08-10 05:52] LABS: PLATELET COUNT 219 K/uL (156-360)
[2017-08-10 05:53] LABS: ALKALINE PHOSPHATASE 48 IU/L (3-129); ANION GAP 6 MEQ/L (2-14); CHLORIDE 99 MEQ/L (99-109); GFR ESTIMATE (CALCULATED) > 59 mL/min/; GLUCOSE 173 mg/dL (70-99); POTASSIUM 3.3 MEQ/L (3.7-5.4); SAMPLE HEMOLYSIS CHECK 0; SAMPLE ICTERIC CHECK 0; SAMPLE LIPEMIA CHECK 0; SODIUM 141 MEQ/L (136-147); TOTAL BILIRUBIN 0.5 MG/DL (0.0-1.0); UREA NITROGEN (BUN) 25 mg/dL (9-23)
[2017-08-11] VITALS (12 sets, daily range): BP systolic 124–150; BP diastolic 52–105
[2017-08-11 05:50] LABS: HEMATOCRIT 28.5 % (36.0-46.0); MCH 30.7 PG (29.0-34.0); MCHC 31.9 G/DL (30.0-36.0); MCV 96.3 FL (83-99); MEAN PLAT.VOLUME 11.5 uM^3 (9.5-12.4); PLATELET COUNT 257 K/uL (156-360); RBC DIS.WIDTH-CV 15.7 % (11.8-14.6); RBC DIS.WIDTH-SD 53.6 % (39-53); RED BLOOD COUNT 2.96 M/uL (3.80-5.20); WHITE BLOOD COUNT 17.7 K/uL (4.1-10.2)
[2017-08-11 06:22] LABS: ALKALINE PHOSPHATASE 53 IU/L (3-129); ANION GAP 5 MEQ/L (2-14); CHLORIDE 98 MEQ/L (99-109); GFR ESTIMATE (CALCULATED) > 59 mL/min/; GLUCOSE 124 mg/dL (70-99); SAMPLE HEMOLYSIS CHECK 0; SAMPLE ICTERIC CHECK 0; SAMPLE LIPEMIA CHECK 0; SODIUM 140 MEQ/L (136-147); TOTAL BILIRUBIN 0.5 MG/DL (0.0-1.0); UREA NITROGEN (BUN) 21 mg/dL (9-23)
[2017-08-11 06:24] LABS: POTASSIUM 4.5 MEQ/L (3.7-5.4)
[2017-08-11 09:15] LABS: POC NON-PRINT COM 1 ND
[2017-08-12 03:47] VITALS: BP 144/63
[2017-08-12 05:54] LABS: ALKALINE PHOSPHATASE 51 IU/L (3-129); ANION GAP 7 MEQ/L (2-14); CHLORIDE 95 MEQ/L (99-109); GFR ESTIMATE (CALCULATED) > 59 mL/min/; POTASSIUM 3.7 MEQ/L (3.7-5.4); SAMPLE HEMOLYSIS CHECK 0; SAMPLE ICTERIC CHECK 0; SAMPLE LIPEMIA CHECK 0; SODIUM 136 MEQ/L (136-147); TOTAL BILIRUBIN 0.5 MG/DL (0.0-1.0); UREA NITROGEN (BUN) 21 mg/dL (9-23)
[2017-08-12 06:05] LABS: HEMATOCRIT 26.7 % (36.0-46.0); MCH 31.8 PG (29.0-34.0); MCHC 33.3 G/DL (30.0-36.0); MCV 95.4 FL (83-99); MEAN PLAT.VOLUME 11.2 uM^3 (9.5-12.4); RBC DIS.WIDTH-CV 15.7 % (11.8-14.6); RBC DIS.WIDTH-SD 53.1 % (39-53); WHITE BLOOD COUNT 13.2 K/uL (4.1-10.2)
[2017-08-12 06:10] LABS: PLATELET COUNT 340 K/uL (156-360)
[2017-08-12 06:41] LABS: GLUCOSE 80 mg/dL (70-99)
[2017-08-12 07:25] VITALS: BP 135/60
[2017-08-12 11:19] VITALS: BP 125/58
[2017-08-12 15:02] VITALS: BP 102/54
[2017-08-12 20:00] VITALS: BP 137/60
[2017-08-12 23:55] VITALS: BP 124/60
[2017-08-13] VITALS (7 sets, daily range): BP systolic 111–132; BP diastolic 53–83
[2017-08-13 10:42] LABS: HEMATOCRIT 35.9 % (36.0-46.0); MCH 31.5 PG (29.0-34.0); MCHC 32.9 G/DL (30.0-36.0); MCV 95.7 FL (83-99); MEAN PLAT.VOLUME 10.8 uM^3 (9.5-12.4); RBC DIS.WIDTH-CV 16.1 % (11.8-14.6); RBC DIS.WIDTH-SD 53.1 % (39-53); WHITE BLOOD COUNT 16.2 K/uL (4.1-10.2)
[2017-08-13 10:49] LABS: ANION GAP 10 MEQ/L (2-14); CHLORIDE 96 MEQ/L (99-109); GFR ESTIMATE (CALCULATED) > 59 mL/min/; GLUCOSE 99 mg/dL (70-99); SAMPLE HEMOLYSIS CHECK 0; SAMPLE ICTERIC CHECK 0; SAMPLE LIPEMIA CHECK 0; SODIUM 136 MEQ/L (136-147); UREA NITROGEN (BUN) 21 mg/dL (9-23)
[2017-08-13 10:52] LABS: PLATELET COUNT 469 K/uL (156-360); RED BLOOD COUNT 3.75 M/uL (3.80-5.20)
[2017-08-13 21:54] LABS: BASE EXCESS 12.9 mEq/L (-3 to +3); CARBOXY HGB 1.6 % (0-5); COMMENTS - BLOOD GASES C+; DEVICE NC; METHEMOGLOBIN 1.5 % (0-1.5); O2 FLOW 3.5 L/MIN; PCO2 51 mm Hg (35-45); PO2 85 mm Hg (80-100); TOTAL RESP RATE 18 resp/min; pH 7.48 (7.35-7.45)
[2017-08-13 21:55] LABS: SITE LB
[2017-08-14 04:31] VITALS: BP 115/62
[2017-08-14 07:16] VITALS: BP 100/55
[2017-08-14 12:56] VITALS: BP 101/47
[2017-08-14 17:49] VITALS: BP 124/65
[2017-08-14 20:30] VITALS: BP 118/56
[2017-08-15 00:19] VITALS: BP 121/59
[2017-08-15 04:22] VITALS: BP 130/59
[2017-08-15 07:23] VITALS: BP 145/67
[2017-08-15 10:40] LABS: HEMATOCRIT 31.7 % (36.0-46.0); MCH 31.6 PG (29.0-34.0); MCHC 32.5 G/DL (30.0-36.0); MCV 97.2 FL (83-99); MEAN PLAT.VOLUME 10.1 uM^3 (9.5-12.4); PLATELET COUNT 422 K/uL (156-360); RBC DIS.WIDTH-CV 16.7 % (11.8-14.6); RBC DIS.WIDTH-SD 56.8 % (39-53); RED BLOOD COUNT 3.26 M/uL (3.80-5.20); WHITE BLOOD COUNT 15.5 K/uL (4.1-10.2)
[2017-08-15 12:57] VITALS: BP 108/54
[2017-08-15 17:55] VITALS: BP 168/61
[2017-08-15 19:31] VITALS: BP 113/68
[2017-08-16 01:34] VITALS: BP 110/76
[2017-08-16 09:58] VITALS: BP 96/57
[2017-08-16 12:52] VITALS: BP 118/57
[2017-08-16 15:58] VITALS: BP 146/58
[2017-08-16 20:05] VITALS: BP 140/62
[2017-08-16 23:51] VITALS: BP 179/81
[2017-08-17 04:25] VITALS: BP 163/77
[2017-08-17 05:04] LABS: HEMATOCRIT 27.3 % (36.0-46.0); MCH 31.3 PG (29.0-34.0); MCHC 31.9 G/DL (30.0-36.0); MCV 98.2 FL (83-99); MEAN PLAT.VOLUME 9.6 uM^3 (9.5-12.4); PLATELET COUNT 376 K/uL (156-360); RBC DIS.WIDTH-CV 16.5 % (11.8-14.6); RED BLOOD COUNT 2.78 M/uL (3.80-5.20); WHITE BLOOD COUNT 9.9 K/uL (4.1-10.2)
[2017-08-17 05:19] LABS: CHLORIDE 106 mEq/L (99-109); SODIUM 142 mEq/L (136-147)
[2017-08-17 05:21] LABS: GLUCOSE 80 mg/dL (70-99)
[2017-08-17 05:22] LABS: ANION GAP 4 MEQ/L (2-14)
[2017-08-17 05:23] LABS: TOTAL BILIRUBIN 0.5 mg/dL (0.0-1.0)
[2017-08-17 05:25] LABS: ALKALINE PHOSPHATASE 68 IU/L (3-129); GFR ESTIMATE (CALCULATED) > 59 mL/min/
[2017-08-17 05:26] LABS: UREA NITROGEN (BUN) 15 mg/dL (9-23)
[2017-08-17 08:13] VITALS: BP 195/80
[2017-08-17 08:27] VITALS: BP 137/49
[2017-08-17 11:29] VITALS: BP 119/56
[2017-08-17 15:11] VITALS: BP 114/57
[2017-08-17 20:14] VITALS: BP 119/58
[2017-08-18] VITALS (9 sets, daily range): BP systolic 97–158; BP diastolic 43–82
[2017-08-18 05:51] LABS: BASOPHIL COUNT 0.1 K/uL (0-0.1); EOSINOPHIL (%) 3.1 % (0-5); EOSINOPHIL COUNT 0.3 K/uL (0-0.3); IMMATURE GRANULOCYTE (%) 0.4 % (0.0-0.7); INSTRUMENT ABS NEUTROPHIL CT 7.5 K/uL; LYMPHOCYTE COUNT 1.6 K/uL (1.0-2.8); MCH 30.6 PG (29.0-34.0); MCHC 30.7 G/DL (30.0-36.0); MCV 99.7 FL (83-99); MEAN PLAT.VOLUME 9.8 uM^3 (9.5-12.4); MONOCYTE (%) 8.1 % (3-12); MONOCYTE COUNT 0.8 K/uL (0-0.8); NEUTROPHIL (%) 71.9 % (45-76); NEUTROPHIL COUNT 7.5 K/uL (1.8-6.4); PLATELET COUNT 381 K/uL (156-360); RBC DIS.WIDTH-CV 16.9 % (11.8-14.6); RBC DIS.WIDTH-SD 60.2 % (39-53); RED BLOOD COUNT 3.01 M/uL (3.80-5.20); WHITE BLOOD COUNT 10.4 K/uL (4.1-10.2)
[2017-08-18 06:34] LABS: ALKALINE PHOSPHATASE 68 IU/L (3-129); ANION GAP 8 MEQ/L (2-14); GFR ESTIMATE (CALCULATED) > 59 mL/min/; GLUCOSE 74 mg/dL (70-99); POTASSIUM 3.6 MEQ/L (3.7-5.4); SAMPLE HEMOLYSIS CHECK 0; SAMPLE ICTERIC CHECK 0; SAMPLE LIPEMIA CHECK 0; SODIUM 146 MEQ/L (136-147); TOTAL BILIRUBIN 0.6 MG/DL (0.0-1.0); UREA NITROGEN (BUN) 18 mg/dL (9-23)
[2017-08-18 06:35] LABS: CHLORIDE 107 MEQ/L (99-109)
[2017-08-18 16:25] LABS: ADD MIUA? YES; BILIRUBIN NEGATIVE; BLOOD NEGATIVE; COLOR YELLOW ((YELLOW)); GLUCOSE (STRIP) NEGATIVE; KETONES NEGATIVE; LEUKOCYTES NEGATIVE; NITRITE NEGATIVE; PROTEIN (STRIP) NEGATIVE; SPECIFIC GRAVITY 1.011 (1.000-1.030); UROBILINOGEN 0.2 MG/DL (0.2-1.0)
[2017-08-18 16:56] LABS: BACTERIA RARE /HPF; EPITHELIAL CELLS RARE /HPF; GRANULAR CASTS 0-5 /LPF; HYALINE CASTS 20-30 /LPF; MUCUS TRACE /LPF; RED BLOOD CELLS 0-5 /HPF (0-5); UCUL ADDED? NO; WHITE BLOOD CELLS 0-5 /HPF (0-5); WHITE BLOOD CELLS CLUMP RARE /HPF (0-5)
[2017-08-19] VITALS (7 sets, daily range): BP systolic 76–142; BP diastolic 34–61
[2017-08-19 08:34] LABS: MCH 31.8 PG (29.0-34.0); MCHC 31.7 G/DL (30.0-36.0); MCV 100.3 FL (83-99); RBC DIS.WIDTH-CV 17.5 % (11.8-14.6); RBC DIS.WIDTH-SD 61.7 % (39-53); RED BLOOD COUNT 3.49 M/uL (3.80-5.20); WHITE BLOOD COUNT 11.1 K/uL (4.1-10.2)
[2017-08-19 09:07] LABS: ALKALINE PHOSPHATASE 73 IU/L (3-129); ANION GAP 12 MEQ/L (2-14); CHLORIDE 108 MEQ/L (99-109); GFR ESTIMATE (CALCULATED) 35 mL/min/; GLUCOSE 94 mg/dL (70-99); POTASSIUM 4.6 MEQ/L (3.7-5.4); SAMPLE HEMOLYSIS CHECK 0; SAMPLE ICTERIC CHECK 0; SAMPLE LIPEMIA CHECK 0; SODIUM 152 MEQ/L (136-147); TOTAL BILIRUBIN 0.7 MG/DL (0.0-1.0); UREA NITROGEN (BUN) 32 mg/dL (9-23)
[2017-08-19 09:16] LABS: ANISOCYTOSIS 1+; BASOPHIL COUNT 0.1 K/uL (0-0.1); EOSINOPHIL (%) 0.5 % (0-5); EOSINOPHIL COUNT 0.1 K/uL (0-0.3); IMMATURE GRANULOCYTE (%) 0.5 % (0.0-0.7); IMMATURE GRANULOCYTE COUNT 0.1 K/uL; INSTRUMENT ABS NEUTROPHIL CT 8.2 K/uL; MEAN PLAT.VOLUME 9.9 uM^3 (9.5-12.4); MONOCYTE (%) 5.7 % (3-12); MONOCYTE COUNT 0.6 K/uL (0-0.8); NEUTROPHIL (%) 74.4 % (45-76); NEUTROPHIL COUNT 8.2 K/uL (1.8-6.4); PLAT.SUFFICIENCY ADEQUATE; PLATELET COUNT 310 K/uL (156-360)
[2017-08-19 09:27] LABS: TROP-I INTERPRETATION NEGATIVE; TROPONIN-I 0.25 ng/mL (0.0-0.30)
[2017-08-19 12:53] LABS: ADD MIUA? YES; BILIRUBIN NEGATIVE; BLOOD NEGATIVE; COLOR AMBER ((YELLOW)); GLUCOSE (STRIP) NEGATIVE; KETONES NEGATIVE; LEUKOCYTES NEGATIVE; NITRITE NEGATIVE; PROTEIN (STRIP) NEGATIVE; SPECIFIC GRAVITY 1.016 (1.000-1.030); UROBILINOGEN 0.2 MG/DL (0.2-1.0)
[2017-08-19 14:03] LABS: EPITHELIAL CELLS 1+ /HPF; RED BLOOD CELLS NONE SEEN /HPF (0-5); WHITE BLOOD CELLS 0-5 /HPF (0-5)
[2017-08-19 14:04] LABS: BACTERIA NONE SEEN /HPF; CASTS PRESENT /LPF; HYALINE CASTS 0-5 /LPF; MUCUS TRACE /LPF
[2017-08-20] VITALS (7 sets, daily range): BP systolic 122–140; BP diastolic 53–63
[2017-08-20 05:53] LABS: HEMATOCRIT 29.4 % (36.0-46.0); MCH 30.1 PG (29.0-34.0); MCHC 29.3 G/DL (30.0-36.0); MCV 102.8 FL (83-99); MEAN PLAT.VOLUME 10.1 uM^3 (9.5-12.4); PLATELET COUNT 228 K/uL (156-360); RBC DIS.WIDTH-CV 17.2 % (11.8-14.6); RBC DIS.WIDTH-SD 62.9 % (39-53); RED BLOOD COUNT 2.86 M/uL (3.80-5.20); WHITE BLOOD COUNT 8.7 K/uL (4.1-10.2)
[2017-08-20 06:15] LABS: ALKALINE PHOSPHATASE 55 IU/L (3-129); ANION GAP 14 MEQ/L (2-14); CHLORIDE 116 MEQ/L (99-109); GFR ESTIMATE (CALCULATED) 35 mL/min/; POTASSIUM 4.5 MEQ/L (3.7-5.4); SAMPLE HEMOLYSIS CHECK 0; SAMPLE ICTERIC CHECK 0; SAMPLE LIPEMIA CHECK 0; SODIUM 155 MEQ/L (136-147); TOTAL BILIRUBIN 0.8 MG/DL (0.0-1.0); UREA NITROGEN (BUN) 42 mg/dL (9-23)
[2017-08-20 06:16] LABS: GLUCOSE 120 mg/dL (70-99)
[2017-08-20 06:19] LABS: ABS NEUTROPHIL COUNT 7.9; ACANTHOCYTES 1+; ANISOCYTOSIS 1+; BAND NEUTROPHILS 17.4 % (0-8.0); EOSINOPHIL ABS CT 0; INSTRUMENT ABS NEUTROPHIL CT 7.7 K/uL; LYMPHOCYTES 6.1 % (15.0-45.0); MACROCYTES 1+; OVALOCYTES 1+; PLAT.SUFFICIENCY ADEQUATE; POIKILOCYTOSIS 2+
[2017-08-21] VITALS (14 sets, daily range): BP systolic 123–169; BP diastolic 58–74
[2017-08-21 05:46] LABS: HEMATOCRIT 24.9 % (36.0-46.0); MCH 30.3 PG (29.0-34.0); MCHC 29.3 G/DL (30.0-36.0); MCV 103.3 FL (83-99); MEAN PLAT.VOLUME 10.4 uM^3 (9.5-12.4); PLATELET COUNT 198 K/uL (156-360); RBC DIS.WIDTH-CV 17.2 % (11.8-14.6); RBC DIS.WIDTH-SD 63.8 % (39-53); RED BLOOD COUNT 2.41 M/uL (3.80-5.20); WHITE BLOOD COUNT 6.5 K/uL (4.1-10.2)
[2017-08-21 06:30] LABS: ANION GAP 9 MEQ/L (2-14); CHLORIDE 118 MEQ/L (99-109); GLUCOSE 143 mg/dL (70-99); SAMPLE HEMOLYSIS CHECK 0; SAMPLE ICTERIC CHECK 0; SAMPLE LIPEMIA CHECK 0; SODIUM 151 MEQ/L (136-147); UREA NITROGEN (BUN) 50 mg/dL (9-23)
[2017-08-21 06:31] LABS: GFR ESTIMATE (CALCULATED) 56 mL/min/; POTASSIUM 3.5 MEQ/L (3.7-5.4)
[2017-08-22 04:15] VITALS: BP 178/70
[2017-08-22 06:02] LABS: ALKALINE PHOSPHATASE 62 IU/L (3-129); ANION GAP 11 MEQ/L (2-14); CHLORIDE 116 MEQ/L (99-109); GFR ESTIMATE (CALCULATED) > 59 mL/min/; GLUCOSE 127 mg/dL (70-99); POTASSIUM 3.8 MEQ/L (3.7-5.4); SAMPLE HEMOLYSIS CHECK 0; SAMPLE ICTERIC CHECK 0; SAMPLE LIPEMIA CHECK 0; SODIUM 152 MEQ/L (136-147); UREA NITROGEN (BUN) 46 mg/dL (9-23)
[2017-08-22 06:03] LABS: TOTAL BILIRUBIN 0.4 MG/DL (0.0-1.0)
[2017-08-22 06:41] LABS: HEMATOCRIT 31.8 % (36.0-46.0); MCH 31.6 PG (29.0-34.0); MCHC 32.4 G/DL (30.0-36.0); MEAN PLAT.VOLUME 10.7 uM^3 (9.5-12.4); PLATELET COUNT 175 K/uL (156-360); RBC DIS.WIDTH-SD 59.7 % (39-53); WHITE BLOOD COUNT 6.5 K/uL (4.1-10.2)
[2017-08-22 06:44] LABS: MCV 97.5 FL (83-99); RED BLOOD COUNT 3.26 M/uL (3.80-5.20)
[2017-08-22 07:37] VITALS: BP 150/68
[2017-08-22 12:08] VITALS: BP 158/58
[2017-08-22 16:00] VITALS: BP 152/68
[2017-08-22 19:26] VITALS: BP 160/68
[2017-08-23 00:15] VITALS: BP 150/72
[2017-08-23 04:40] VITALS: BP 152/76
[2017-08-23 05:24] LABS: HEMATOCRIT 34.6 % (36.0-46.0); MCH 31.6 PG (29.0-34.0); MCHC 32.1 G/DL (30.0-36.0); MCV 98.6 FL (83-99); MEAN PLAT.VOLUME 11.1 uM^3 (9.5-12.4); PLATELET COUNT 165 K/uL (156-360); RBC DIS.WIDTH-CV 16.9 % (11.8-14.6); RBC DIS.WIDTH-SD 60.2 % (39-53); RED BLOOD COUNT 3.51 M/uL (3.80-5.20); WHITE BLOOD COUNT 6.6 K/uL (4.1-10.2)
[2017-08-23 05:48] LABS: ALKALINE PHOSPHATASE 63 IU/L (3-129); ANION GAP 8 MEQ/L (2-14); CHLORIDE 114 MEQ/L (99-109); GFR ESTIMATE (CALCULATED) > 59 mL/min/; GLUCOSE 152 mg/dL (70-99); POTASSIUM 4.1 MEQ/L (3.7-5.4); SAMPLE HEMOLYSIS CHECK 0; SAMPLE ICTERIC CHECK 0; SAMPLE LIPEMIA CHECK 0; SODIUM 149 MEQ/L (136-147); TOTAL BILIRUBIN 0.4 MG/DL (0.0-1.0); UREA NITROGEN (BUN) 33 mg/dL (9-23)
[2017-08-23 06:37] LABS: ABS NEUTROPHIL COUNT 6.3; ACANTHOCYTES 1+; ANISOCYTOSIS 1+; BAND NEUTROPHILS 9.2 % (0-8.0); EOSINOPHIL ABS CT 0; LYMPHOCYTES 1.8 % (15.0-45.0); MYELOCYTES 0.9 %; NUCLEATED RBC'S 0.9; PLAT.SUFFICIENCY ADEQUATE; SEG.NEUTROPHILS 86.3 % (46.0-76.0)
[2017-08-23 07:30] VITALS: BP 148/72
[2017-08-23 11:06] VITALS: BP 185/88
[2017-08-23 16:07] VITALS: BP 167/80
[2017-08-23 19:05] VITALS: BP 160/68
[2017-08-24 01:15] VITALS: BP 142/68
[2017-08-24 04:30] VITALS: BP 138/62
[2017-08-24 07:37] VITALS: BP 142/83
[2017-08-24 19:29] VITALS: BP 106/49
[2017-08-25 05:45] VITALS: BP 00/00
== END 2017-08-25 09:04 | DRG 853 ==
LOC: EME 08:34 → 4WEST 10:15 → EDOF 10:15 → 4EAST 10:15 → ENRESERV 10:31 → EDOF 11:44 → ENRESERV 18:12 → EDOF 18:15 → ENRESERV 20:36 → 4WEST 21:05 → CANRESERV 08-05 13:31 → ENRESERV 08-05 13:31 → 4EAST 08-11 23:17 → ENRESERV 08-18 15:56 → 3EAST 08-18 17:34 → ENRESERV 08-19 08:44 → 3EAST 08-19 08:47 → ENRESERV 08-19 09:08 → 4EAST 08-19 09:19
PROVIDERS: Emergency Medicine; Family Medicine; Internal Medicine Critical Care Medicine; Internal Medicine Nephrology; Internal Medicine Pulmonary Disease; Nurse Practitioner Adult Health; Obstetrics & Gynecology; Physician Assistant Surgical; Surgery
DX: A41.9 Sepsis, unspecified organism (principal); K57.20 Diverticulitis of large intestine with perforation and abscess without bleeding; R65.21 Severe sepsis with septic shock; N17.9 Acute kidney failure, unspecified; E87.0 Hyperosmolality and hypernatremia; E87.6 Hypokalemia; J96.21 Acute and chronic respiratory failure with hypoxia; J44.1 Chronic obstructive pulmonary disease with (acute) exacerbation; D64.9 Anemia, unspecified; K56.7 Ileus, unspecified; I47.1 Supraventricular tachycardia; Z51.5 Encounter for palliative care; E46 Unspecified protein-calorie malnutrition; E87.2 Acidosis; N39.0 Urinary tract infection, site not specified; B95.2 Enterococcus as the cause of diseases classified elsewhere; J44.0 Chronic obstructive pulmonary disease with (acute) lower respiratory infection; J20.9 Acute bronchitis, unspecified; J18.9 Pneumonia, unspecified organism; I13.0 Hypertensive heart and chronic kidney disease with heart failure and stage 1 through stage 4 chronic kidney disease, or unspecified chronic kidney disease; I50.9 Heart failure, unspecified; N18.9 Chronic kidney disease, unspecified; I25.10 Atherosclerotic heart disease of native coronary artery without angina pectoris; E78.5 Hyperlipidemia, unspecified; G43.909 Migraine, unspecified, not intractable, without status migrainosus; E03.9 Hypothyroidism, unspecified; I48.0 Paroxysmal atrial fibrillation; M35.3 Polymyalgia rheumatica; K21.9 Gastro-esophageal reflux disease without esophagitis; I25.810 Atherosclerosis of coronary artery bypass graft(s) without angina pectoris; I73.00 Raynaud's syndrome without gangrene; F03.90 Unspecified dementia, unspecified severity, without behavioral disturbance, psychotic disturbance, mood disturbance, and anxiety; M10.9 Gout, unspecified; L40.9 Psoriasis, unspecified; R32 Unspecified urinary incontinence; R40.0 Somnolence; Z66 Do not resuscitate; Z79.82 Long term (current) use of aspirin; Z88.1 Allergy status to other antibiotic agents; Z88.5 Allergy status to narcotic agent; Z87.891 Personal history of nicotine dependence; Z99.81 Dependence on supplemental oxygen; Z99.3 Dependence on wheelchair; Z86.73 Personal history of transient ischemic attack (TIA), and cerebral infarction without residual deficits; Z79.52 Long term (current) use of systemic steroids
CPT/HCPCS: 31720; 36600; 70450; 71010; 71020; 74176; 74177; 74230; 76770; 80048; 80048 91; 80053; 80202; 81003; 82272; 82550; 82570; 82803; 82948; 83605; 83690; 83735; 83930; 83935; 84100; 84443; 84484; 85025; 85027; 86850; 86900; 86901; 86920; 87040; 87070; 87075; 87076; 87077; 87086; 87106; 87116; 87185; 87186; 87205; 87206; 87493; 87506; 87641; 88304; 88305; 88307; 92526 GN; 92610 GN; 92611 GN; 93005; 93306; 93971; 94002; 94003; 94010; 94640; 94640 76; 94667; 94668; 94760; 94799; 97530 GO; 97530 GP; 99202; 99281; 99285; C1751; C1753; C1769; C9113; J0330; J0456; J0610; J0690; J0692; J1160; J1335; J1644; J1720; J1815; J1940; J2270; J2370; J2405; J2543; J2710; J2920; J2930; J3010; J3370; J3475; J3480; J7030; J7040; J7050; J7120; J7512; P9016; P9045; P9047; S0030